=== PATIENT | female | born 1965 | race Caucasian/White ===

== ENCOUNTER 2023-12-29 23:20 | Inpatient (IN) | payer OTHER ==
--- OUTSIDE RECORDS SUMMARY | 2023-12-29 23:23 | XMS REPORT | Continuity of Care Document ---
Author Name Unknown Address [address] [facility] [address] [place] [address] [facility] thconnect Address [address] [facility] [address] [place] [address] Care Team Providers Care Retail Product Advisor Name Role Phone Kevin Aguiar MD Primary Care Physician DR NICHOL MELCHOR Attending Clinician Unavailable Kevin Aguiar MD Attending Clinician + [phone] KEVIN AGUIAR Attending Clinician DR NICHOL Mccray Admitting Clinician Unavailable Problems Condition Name Condition Details Condition Category Status Onset Date Resolution Date Last Treatment Date Treating Clinician Comments Source No known active problems No known active problems Disease [facility] Allergies, Adverse Reactions, Alerts Allergy Name Allergy Type Status Severity Reaction(s) Onset Date Inactive Date Treating Clinician Comments Source NO KNOWN ALLERGIE S Drug Class Active [facility] Social History Social Habit Start Date Stop Date Quantity Comments Source History SDOH Alcohol Frequency [facility] History SDOH Alcohol Std Drinks [facility] History SDOH Alcohol Binge [facility] Exposure to SARS-CoV-2 (event) Not sure [facility] Alcohol Comment 2021-07-24 00:00:00 2021-07-24 00:00:00 socially [facility] Tobacco use and exposure 2021-07-24 00:00:00 2021-07-24 00:00:00 Smokeless tobacco non-user [facility] Alcohol intake 2021-07-24 00:00:00 2021-07-24 00:00:00 Current drinker of alcohol (finding) [facility] Sex Ass[birth year] At 1965 00:00:00 1965 00:00:00 [facility] Smoking Status Start Date Stop Date Source Never smoked tobacco [facility] Medications Ordered Medication Name Filled Medication Name Start Date Stop Date Current Medication? Ordering Clinician Indication Dosage Frequency Signature (SIG) Comments Components Source dextroamphe tamine-amph etamine (ADDERALL) 30 mg tablet 05-06 00:00: 00 Yes [id number] 30mg Take 1 tablet by mouth in the morning and 1 tablet in the evening. [facility] dextroamphe tamine-amph etamine (ADDERALL) 30 mg tablet 04-02 00:00: 00 Yes [id number] 30mg Take 1 tablet by mouth 2 (two) times daily. [facility] dextroamphe tamine-amph etamine (ADDERALL) 30 mg tablet 04-02 00:00: 00 05-06 00:00 :00 No [id number] 30mg Take 1 tablet by mouth 2 (two) times daily. [facility] dextroamphe tamine-amph etamine (ADDERALL) 30 mg tablet 03-31 00:00: 00 Yes [id number] 30mg Take 1 tablet by mouth 2 (two) times daily. [facility] dextroamphe tamine-amph etamine (ADDERALL) 30 mg tablet 03-31 00:00: 00 04-02 00:00 :00 No [id number] 30mg Take 1 tablet by mouth 2 (two) times daily. [facility] dextroamphe tamine-amph etamine (ADDERALL) 30 mg tablet 02-18 00:00: 00 Yes [id number] 30mg Take 1 tablet by mouth 2 (two) times daily. [facility] dextroamphe tamine-amph etamine (ADDERALL) 30 mg tablet 02-18 00:00: 00 03-31 00:00 :00 No [id number] 30mg Take 1 tablet by mouth 2 (two) times daily. [facility] dextroamphe tamine-amph etamine (ADDERALL) 30 mg tablet 0 4-11 00:00: 00 Yes [id number] 30mg Take 1 tablet by mouth 2 (two) times daily. [facility] dextroamphe tamine-amph etamine (ADDERALL) 30 mg tablet 0 4- 00:00: 00 02-18 00:00 :00 No [id number] 30mg Take 1 tablet by mouth 2 (two) times daily. [facility] traZODone 50 mg tablet 0 3-03 00:00: 00 Yes [id number] 50mg Take 1 tablet by mouth at bedtime. [facility] traZODone 50 mg tablet 0 3-03 00:00: 00 Yes [id number] 50mg Take 1 tablet by mouth at bedtime. [facility] traZODone 50 mg tablet 0 3- 00:00: 00 Yes [id number] 50mg Take 1 tablet by mouth at bedtime. [facility] traZODone 50 mg tablet 0 3-03 00:00: 00 Yes [id number] 50mg Take 1 tablet by mouth at bedtime. [facility] traZODone 50 mg tablet 0 3-03 00:00: 00 Yes [id number] 50mg Take 1 tablet by mouth at bedtime. [facility] dextroamphe tamine-amph etamine (ADDERALL) 30 mg tablet 0 3-03 00:00: 00 01-19 00:00 :00 No [id number] 30mg Take 1 tablet by mouth 2 (two) times daily. [facility] dextroamphe tamine-amph etamine (ADDERALL) 30 mg tablet 2 00:00: 00 Yes [id number] 30mg Take 1 tablet by mouth 2 (two) times daily. [facility] dextroamphe tamine-amph etamine (ADDERALL) 30 mg tablet 2020-10 2- 00:00: 00 11-17 00:00 :00 No [id number] 30mg Take 1 tablet by mouth 2 (two) times daily. [facility] dextroamphe tamine-amph etamine (ADDERALL) 30 mg tablet 2020-10 00:00: 00 Yes [id number] 30mg Take 1 tablet by mouth 2 (two) times daily. [facility] dextroamphe tamine-amph etamine (ADDERALL) 30 mg tablet 2020-10 00:00: 00 Yes [id number] 30mg Take 1 tablet by mouth 2 (two) times daily. [facility] dextroamphe tamine-amph etamine (ADDERALL) 30 mg tablet 2020-10 00:00: 00 08-26 00:00 :00 No [id number] 30mg Take 1 tablet by mouth 2 (two) times daily. [facility] dextroamphe tamine-amph etamine (ADDERALL) 20 mg tablet 2020-10 00:00: 00 Yes [id number] 20mg Take 1 tablet by mouth daily. [facility] busPIRone 5 mg tablet 2020-10 00:00: 00 Yes [id number] 5mg Take 1 tablet by mouth 2 (two) times daily. [facility] dextroamphe tamine-amph etamine (ADDERALL) 20 mg tablet 2020-10 00:00: 00 Yes [id number] 20mg Take 1 tablet by mouth daily. [facility] busPIRone 5 mg tablet 2020-10 00:00: 00 Yes [id number] 5mg Take 1 tablet by mouth 2 (two) times daily. [facility] busPIRone 5 mg tablet 2020-10 014 00:00: 00 Yes [id number] 5mg Take 1 tablet by mouth 2 (two) times daily. [facility] busPIRone 5 mg tablet 2020-10 014 00:00: 00 Yes [id number] 5mg Take 1 tablet by mouth 2 (two) times daily. [facility] busPIRone 5 mg tablet 2021-1 0-14 00:00: 00 Yes [id number] 5mg Take 1 tablet by mouth 2 (two) times daily. [facility] dextroamphe tamine-amph etamine (ADDERALL) 20 mg tablet 2020-10 00:00: 00 08-22 00:00 :00 No [id number] 20mg Take 1 tablet by mouth daily. [facility] dextroamphe tamine-amph etamine (ADDERALL) 20 mg tablet 2020-10 00:00: 00 07-24 00:00 :00 No [id number] 20mg Take 1 tablet by mouth daily. [facility] dextroamphe tamine-amph etamine (ADDERALL) 20 mg tablet 2020-10 00:00: 00 07-24 00:00 :00 No [id number] 20mg Take 1 tablet by mouth daily. [facility] Vital Signs Vital Name Observation Time Observation Value Comments S ourmichael Systolic blood pressure 2021-07-24 14:25:00 137 mm[Hg] [facility] Diastolic blood pressure 2021-07-24 14:25:00 83 mm[Hg] [facility] Heart rate 2021-07-24 14:25:00 78 /min [facility] Body height 2021-07-24 14:25:00 177.8 cm [facility] Body weight 2021-07-24 14:25:00 111.585 kg [facility] BMI 2021-07-24 14:25:00 35.30 kg/m2 [facility] Encounters Start Date/Time End Date/Time Encounter Type Admission Type Attending Clinicians Care Facility Care Department Encounter ID Source 2017-10-08 07:00:00 Inpatient NICHOL CAMACOH [facility] [id number] [facility] 2022-05-06 00:00:00 2022-05-06 00:00:00 Refill Kevin Aguiar [facility] RAJAT?[facility] [id number] 350.1.13.10 [id number] [id number] [facility] 2022-04-02 00:00:00 2022-04-02 00:00:00 RefKevin Lewis [facility] RAJAT?[facility] 1..840.114 350.1.13.10 4.2.7.2.686 [id number] [facility] 2022-03-30 00:00:00 2022-03-30 00:00:00 Refill Kevin Aguiar [facility] RAJAT?[facility] 1..840.114 350.1.13.10 4.2.7.2.686 [id number] [facility] 2022-02-18 00:00:00 2022-02-18 00:00:00 RefKevin Lewis [facility] RAJAT?[facility] 1..840.114 350.1.13.10 4.2.7.2.686 [id number] [facility] 2022-01-19 00:00:00 2022-01-19 00:00:00 RefKevin Lewis [facility] RAJAT?[facility] 1..840.114 350.1.13.10 4.2.7.2.686 [id number] [facility] 2021-12-11 10:00:00 2021-12-11 10:00:00 Outpatient KEVIN WHEELER [facility] [id number] [facility] 2021-11-24 09:00:00 2021-11-24 09:00:00 Outpatient KEVIN WHEELER [facility] [id number] [facility] 2021-11-17 00:00:00 2021-11-17 00:00:00 RefKevin Lewis [facility] 1..840.114 350.1.13.10 4.2.7.2.686 [id number] [facility] 2021-08-26 00:00:00 2021-08-26 00:00:00 Telephone Kevin Aguiar [facility] RAJAT?[facility] [id number] 350.1.13.10 [id number] [id number] [facility] 2021-08-21 00:00:00 2021-08-21 00:00:00 [facility] [id number] 350.1.13.10 [id number] [id number] [facility] 2021-07-24 09:11:36 2021-07-24 09:41:36 Office [facility] [id number] [id number] [id number] [id number] [facility] 2021-07-24 09:30:00 2021-07-24 09:30:00 Outpatient R KEVIN AGUIAR [facility] [id number] [facility]
[2023-12-30] MEDS ORDERED: ASPIRIN 81 MG CHEWABLE TABLET ONE (00:23)
[2023-12-30] MEDS ORDERED: NA CHLORIDE 0.9% 1,000 ML ONE (00:24)
[2023-12-30 01:11] LABS: Absolute Eosinophils 0.2 K/uL (0-0.5); Absolute Lymphocytes (CBC) 1.2 K/uL (0.7-4.9); Absolute Monocytes 0.5 K/uL (0.1-1.3); Absolute Neutrophil 5.6 K/uL (1.8-8.0); Basophils % 0.2 % (0-1.3); Hematocrit 34.9 % (36.0-45.0); Hemoglobin 11.7 g/dL (12.0-15.0); Lymphocytes % 15.9 % (15.3-44.8); MCHC 33.6 g/dL (32.0-36.0); MCV 83.2 fL (80-100); MPV 8.4 fL (7.6-11.3); Monocytes % 6.8 % (3.3-12.3); Neutrophils % 75.1 % (41.7-73.7); Nucleated Red Blood Cells % 0.1 % (0-0); Platelets 226 thou/uL (152-406); Red Cell Distribution Width 14.8 % (12.1-15.2)
[2023-12-30 01:15] LABS: PT Prothrombin Time 12.2 SECONDS (9.5-12.5); Protime INR 1.11
[2023-12-30 01:29] LABS: SARS-CoV-2 Antigen CONTROL BLUE LINE VIS/BG OK; SARS-CoV-2 Antigen Rapid Res Negative (Negative)
[2023-12-30 01:36] LABS: Albumin 3.6 g/dL (3.4-5.0); Albumin/Globulin Ratio 0.9 (1.1-1.8); Anion Gap 9.8 mEq/L (5.0-15.0); Bilirubin Direct 0.1 mg/dL (0-0.2); Bilirubin Indirect, Calculated 0.3 mg/dL (0.2-0.8); Bilirubin Total 0.4 mg/dL (0.2-1.0); C-Reactive Protein 43.3 mg/L (<3.00); Globulin 4.2 g/dL (2.3-3.5); Magnesium 2.4 mg/dL (1.6-2.4); Potassium 3.8 mEq/L (3.5-5.1); Protein, Total 7.8 g/dL (6.4-8.2); Thyroid Stimulating Hormone 1.67 uIU/mL (0.358-3.740)
[2023-12-30 01:37] LABS: Troponin High Sensitivity 616.4 pg/mL (<58.9)
[2023-12-30] MEDS ORDERED: ONDANSETRON 4 MG/2 ML VIAL IV PRN (03:19)
[2023-12-30] MEDS ORDERED: IPRATROPIUM BROM 0.5MG/2.5ML NEB PRN (03:19)
[2023-12-30] MEDS ORDERED: ACETAMINOPHEN 500 MG TAB PO PRN (03:19)
[2023-12-30] MEDS ORDERED: ALBUTEROL 2.5 MG/3 ML NEB SOL NEB PRN (03:19)
--- NOTE | 2023-12-30 03:19 | EDPHYS ---
Physician Documentation [facility] Name: Neelam Abdullahi Age: 58 yrs Sex: Female : 1965 Arrival Date: 12/29/2023 Time: 23:20 Bed 18 Private MD: None, None ED Physician Jacky Chi HPI: 12/28 23:47 This 58 yrs old Female presents to ER via Wheelchair with complaints of sp4 Breathing Difficulty, Neck pain. 12/29 00:03 58-year-old female presents with acute onset of shortness of breath and chest pain on sp4 physical exertion starting at noon today. Patient also reports some pain in her upper neck. Historical: - Allergies: 12/28 23:37 No Known Allergies; kd3 - Immunization history:: Adult Immunizations up to date. - Social history:: Smoking status: Patient denies any tobacco usage or history of. - Family history:: not pertinent. ROS: 12/29 00:03 Constitutional: Negative for fever, chills, and weight loss, positive chest pain sp4 positive shortness of breath with physical exertion All other systems are negative, Exam: 00:03 Constitutional: This is a well developed, well nourished patient who is awake, alert, sp4 and in no acute distress. Head/Face: Normocephalic, atraumatic. Eyes: Pupils equal round and reactive to light, extra-ocular motions intact. Lids and lashes normal. Conjunctiva and sclera are not injected. Cornea within normal limits. Periorbital areas with no swelling, redness, or edema. ENT: Nares patent. No nasal discharge, no septal abnormalities noted. Tympanic membranes are normal and external auditory canals are clear. Oropharynx with no redness, swelling, or masses, exudates, or evidence of obstruction, uvula midline. Mucous membranes moist. Neck: Trachea midline, no thyromegaly or masses palpated, and no cervical lymphadenopathy. Supple, full range of motion without nuchal rigidity, or vertebral point tenderness. Chest/axilla: Normal chest wall appearance and motion. Nontender with no deformity. No lesions are appreciated. Cardiovascular: Regular rate and rhythm with a normal S1 and S2. No gallops, murmurs, or rubs. Normal PMI, no JVD. No pulse deficits. Respiratory: Lungs have equal breath sounds bilaterally, clear to auscultation and percussion. No rales, rhonchi or wheezes noted. No increased work of breathing, no retractions or nasal flaring. Abdomen/GI: Soft, with normal bowel sounds. No distension or tympany. No guarding or rebound. No evidence of tenderness throughout. Back: No spinal tenderness. No costovertebral tenderness. Skin: Warm, dry with normal turgor. Normal color with no rashes, no lesions, and no evidence of cellulitis. MS/ Extremity: Pulses equal, no cyanosis. Neurovascular intact. Full, normal range of motion. Neuro: Awake and alert, GCS 15, oriented to person, place, time, and situation. Cranial nerves II-XII grossly intact. Motor strength 5/5 in all extremities. Sensory grossly intact. Psych: Awake, alert, with orientation to person, place and time. Behavior, mood, and affect are within normal limits Vital Signs: 12/28 23:35 BP 147 / 89; Pulse 89; Resp 20; Temp 98.2(O); Pulse Ox 98% on R/A; Weight 104.33 kg; kd3 Height 5 ft. 10 in. ; 12/29 00:00 BP 149 / 104; Pulse 94; Resp 19 S; Pulse Ox 96% on R/A; jw7 01:00 BP 147 / 98; Pulse 87; Resp 18 S; Pulse Ox 97% on R/A; jw7 03:02 BP 135 / 89; Pulse 86; Resp 18; Pulse Ox 95% ; vc1 03:23 Weight 109.27 kg (M); jw7 04:00 BP 136 / 87; Pulse 87; Resp 17; Pulse Ox 98% on 2 lpm NC; vc1 12/28 23:35 Body Mass Index 33.00 (109.27 kg, 177.8 cm) kd3 NIH Stroke Scale Scores: 00:03 NIHSS Score: 0 sp4 Sanders Coma Score: 00:03 Eye Response: spontaneous(4). Motor Response: obeys commands(6). Verbal Response: sp4 oriented(5). Total: 15. MDM: 12/28 23:53 Patient medically screened. sp4 12/29 00:07 Data reviewed: vital signs, nurses notes, old medical records, lab test result(s), EKG, sp4 radiologic studies, CT scan, plain films. 02:58 Differential diagnosis: Anxiety Reaction asthma, Bronchitis CHF exacerbation, Chronic sp4 Obstructive Pulmonary Disease Myocardial Infarction pneumonia. ED course: EXAM: Chest Single View CLINICAL INDICATION: 58-year-old female with chest pain. TECHNIQUE: Single view, AP portable chest was obtained. COMPARISON: None. FINDINGS: Unremarkable cardiac and mediastinal silhouette. Heart size is normal. Low lung volumes without focal opacity, pneumothorax or pleural effusions. The visualized bones are within normal limits. IMPRESSION: No acute cardiopulmonary abnormalities. 03:06 ED course: EXAM DESCRIPTION: Chest For Pe Angio CLINICAL HISTORY: CHEST PAIN sp4 COMPARISON: None Available. TECHNIQUE: CTA of the chest obtained following the uncomplicated intravenous administration of iodinated contrast. 3-D/MIP reformatted images of the chest available for evaluation. This exam was performed according to our departmental dose-optimization program, which includes automated exposure control, adjustment of the mA and/or kV according to patient size and/or use of iterative reconstruction technique. FINDINGS: Chest: Pulmonary arteries: Contrast bolus is adequate.Multiple filling defects within the right, left, bilateral lobar, and bilateral segmental pulmonary arterial branches compatible with acute pulmonary emboli. Thyroid:No abnormalities of the visualized thyroid. Great Vessels:Great vessels have normal anatomic configuration. Thoracic Aorta:No abnormalities of the thoracic aorta identified. Heart:Heart is not enlarged. RV:LV ratio of 1.5. Flattening of the intraventricular septum. Lymph Nodes:No enlarged mediastinal lymph nodes identified. Esophagus:No abnormalities of the esophagus identified. Other:No additional findings. Lungs:Minimal dependent atelectasis. No confluent airspace consolidation. Pleura:No pleural effusion or pneumothorax. Trachea/Airways:No abnormalities of the visualized trachea or airways. Bones:Mild endplate spondylosis. Upper Abdomen:Limited images of the upper abdomen demonstrate no definite abnormalities of visualized portions of the liver, gallbladder, pancreas, spleen, or adrenal glands. Urgent finding reported to Dr. Chi at 12/30/2023 2:59 AM CDT IMPRESSION: Acute pulmonary emboli involving the right, left, bilateral lobar, and bilateral segmental pulmonary arterial branches. Large clot burden. Findings suggestive of right heart strain. Electronically signed by: Daniel Edge DO 12/30/2023 03:00 AM. 03:15 ED course: Patient warrants admission for management of pulmonary emboli. Will order sp4 bilateral lower extremity ultrasound. Will initiate IV heparin. . 05:26 ED course: PROCEDURE: US Duplex Bilateral Lower Extremities Veins CLINICAL INDICATION: sp4 The patient is 58 years old and is Female; rule out DVT Bed Name: 18 TECHNIQUE: Real-time duplex ultrasound scan of the bilateral lower extremity veins integrating B-mode two-dimensional vascular structure, Doppler spectral analysis, color flow Doppler imaging and compression. COMPARISON: No relevant prior studies available. FINDINGS: RIGHT DEEP VEINS: Echogenic debris demonstrated within the right popliteal vein with noncompression and no flow demonstrated within, consistent with occlusive thrombus. The remaining veins of the right lower extremity demonstrate normal color flow, are normally compressible, with normal phasic flow and/or augmentation response. No additional DVT identified and the right common femoral, femoral, or proximal deep femoral veins. RIGHT SUPERFICIAL VEINS: Unremarkable No thrombus in the visualized right great saphenous vein. LEFT DEEP VEINS: Unremarkable No DVT in the left common femoral, femoral, proximal deep femoral or popliteal veins. The veins demonstrate normal color flow, are normally compressible, with normal phasic flow and/or augmentation response. LEFT SUPERFICIAL VEINS: Unremarkable No thrombus in the visualized left great saphenous vein. SOFT TISSUES: No acute findings. IMPRESSION: Occlusive DVT demonstrated within the right popliteal vein. . 12/29 00:01 Order name: Basic Metabolic Panel; Complete Time: 02:57 sp4 12/29 00:01 Order name: CBC with Diff; Complete Time: 02:57 4 12/29 00:01 Order name: LFT's; Complete Time: 02:57 sp4 12/29 00:01 Order name: Magnesium; Complete Time: 02:57 sp4 12/29 00:01 Order name: NT PRO-BNP; Complete Time: 02:57 4 12/29 00:01 Order name: PT-INR; Complete Time: 02:57 sp4 12/29 00:01 Order name: Troponin HS; Complete Time: 02:57 sp4 12/29 00:02 Order name: TSH; Complete Time: 02:57 sp4 12/29 00:02 Order name: T4 Free; Complete Time: 02:57 sp4 12/29 00:02 Order name: SARS RAPID; Complete Time: 02:57 sp4 12/29 00:02 Order name: CRP; Complete Time: 02:57 sp4 12/29 00:02 Order name: Influenza Screen (a \T\ B); Complete Time: 02:57 4 12/29 00:03 Order name: Urinalysis W/Microscopic [facility] 12/29 00:03 Order name: Urine Drug Screen [facility] 12/29 03:25 Order name: Basic Metabolic Panel EDMS 12/29 03:25 Order name: Basic Metabolic Panel EDMS 12/29 03:25 Order name: Basic Metabolic Panel EDMS 12/29 03:25 Order name: Basic Metabolic Panel EDMS 12/29 03:25 Order name: CBC with Automated Diff EDMS 12/29 03:25 Order name: CBC with Automated Diff EDMS 12/29 03:25 Order name: CBC with Automated Diff EDMS 12/29 03:25 Order name: CBC with Automated Diff EDMS 12/29 03:25 Order name: Troponin High Sensitivity EDMS 12/29 03:25 Order name: Troponin High Sensitivity EDMS 12/29 03:25 Order name: Troponin High Sensitivity EDMS 12/29 03:25 Order name: Troponin High Sensitivity MS 12/29 00:01 Order name: XRAY Chest (1 view) [facility] 12/29 00:02 Order name: CT Chest For PE Angio 4 12/29 03:19 Order name: Extrem Venous W Compression [place] [facility] 12/29 00:01 Order name: EKG; Complete Time: 00:02 [facility] 12/29 03:25 Order name: CONS Physician Consult [facility] 12/29 00:01 Order name: Cardiac monitoring; Complete Time: 00:54 4 12/29 00:01 Order name: EKG - Nurse/Tech; Complete Time: 00:54 [facility] 12/29 00:01 Order name: IV Saline Lock; Complete Time: 00:31 4 12/29 00:01 Order name: Labs collected and sent; Complete Time: 00:31 4 12/29 00:01 Order name: O2 Per Protocol; Complete Time: 00:31 [facility] 12/29 00:01 Order name: O2 Sat Monitoring; Complete Time: 00:31 [facility] Administered Medications: 00:31 Drug: Aspirin PO Chewable Tablet 324 mg PO once; 81 mg tablets x 4 Route: PO; jw7 04:58 Follow up: Response: No adverse reaction vc1 00:31 Drug: NS 0.9% IV 1000 ml IV at 125 ml/hr continuous Route: IV; Rate: 125 ml/hr; Site: jw7 right antecubital; 04:56 Follow up: IV Status: Order to discontinue infusion vc1 04:02 Drug: Heparin (DVT/PE Drip) 18 units/kg/[place] - ([place] [address] units, D5W IV 500 ml) IV jw7 at 1850 units/hr Per protocol; Max initial rate 1800 units/hr {Co-Signature: vc1 (Felicia Garner RN).} Route: IV; Rate: 1800 units/hr; Site: right antecubital; 04:56 Follow up: IV Status: Infusion continued upon admission vc1 04:08 CANCELLED (Other Intervention Used): [id number] units IV at bolus once vc1 04:09 Drug: HEParin IV 8000 units IV at bolus once {Co-Signature: vc1 (Felicia Garner RN).} jw7 Route: IV; Rate: bolus; Site: right antecubital; 04:12 Follow up: IV Status: Completed infusion; IV Intake: 1.6ml vc1 Disposition Summary: 12/30/23 03:18 Hospitalization Ordered Notes: Hospitalization Status: Inpatient Admission sp4 Provider: Sina Wong sp4 [facility] Condition: Stable sp4 Problem: new sp4 Symptoms: have improved sp4 Bed/Room Type: Standard sp4 Room Assignment: 406(12/30/23 03:53) jb4 Diagnosis - Pulmonary embolism without acute cor pulmonale sp4 - Bilateral pulmonary emboli, elevated troponin, right heart strain sp4 Forms: - Medication Reconciliation Form sp4 - SBAR form sp4 - Leadership Thank You Letter sp4 NIH Stroke Scale - NIH Stroke Score Date: 12/30/2023 Time: 00:03 Total Score = 0 10. Dysarthria (speech clarity - read or repeat words) - 0(Normal) 11. Extinction and Inattention (visual/tactile/auditory/spatial/personal) - 0(No abnormality) 1a. Level of Consciousness (LOC) - 0(Alert) 1b. Level of Consciousness (LOC) (Month \T\ Age) - 0(Both) 1c. LOC Commands (Open \T\ Closes Eyes/Client Services Specialist) - 0(Both) 2. Best Gaze (Lateral Gaze Paresis) - 0(Normal) 3. Visual Field Loss - 0(No visual loss) 4. Facial Palsy - 0(Normal) 5a. Left Arm: Motor (10-second hold) - 0(No drift) 5b. Right Arm: Motor (10-second hold) - 0(No drift) 6a. Left Leg: Motor (5-second hold - always test supine) - 0(No drift) 6b. Right Leg: Motor (5-second hold - always test supine) - 0(No drift) 7. Limb Ataxia (finger/nose \T\ heel/nieves - test with eyes open) - 0(Absent) 8. Sensory Loss (pinprick arms/legs/face) - 0(Normal) 9. Best Language: Aphasia (description/naming/reading) - 0(No aphasia) Initials: sp4 Signatures: Dispatcher [employer] EDMS Masoud Mason RN RN jb4 Mya Brenner RN RN kd3 Felicia Garner RN RN vc1 Regina Esquivel RN RN jw7 Potepalov, Sergey, MD MD sp4 Felicia Garner RN vc1 Corrections: (The following items were deleted from the chart) 03:53 03:18 sp4 jb4 04:08 03:03 HEParin IV 5000 units IV at bolus once ordered. sp4 vc1 04:08 04:01 HEParin IV 5000 units IV at bolus once given. jw7 vc1 04:08 04:03 HEParin IV 5000 units IV at bolus once ordered. jw7 vc1
--- NOTE | 2023-12-30 03:19 | P.HP ---
Certification for Inpatient Patient admitted to: Inpatient With expected LOS: >2 Midnights Practitioner: I am a practitioner with admitting privileges, knowledge of patient current condition, hospital course, and medical plan of care. Services: Services provided to patient in accordance with Admission requirements found in Title 42 Section 412.3 of the Code of Federal Regulations Patient History Date of Service: 12/30/23 Reason for admission: Bilateral pulmonary embolism, DVT. History of Present Illness: 58-year-old female patient with no significant medical history was evaluated for episode of worsening shortness of breath. She reported episodes of breath earlier earlier today with associated mild pleuritic component to it. She got more tired and lethargy so she had to come to the ED. In the ED she was worked up and found to have significant abnormalities which include imaging study concerning for bilateral pulm embolism and a right lower extremity DVT. She denies overt episode of chest pain, nausea, vomiting. No prior history of DVTs. She was started on heparin drip and was admitted for inpatient care. Workup also revealed significant elevated troponin of 600. Allergies No Known Allergies Allergy (Unverified 12/30/23 05:31) Review of Systems General: Weakness Eyes: Unremarkable ENT: Unremarkable Respiratory: Shortness of Breath, Pleuritic Pain Cardiovascular: Unremarkable Gastrointestinal: Unremarkable Genitourinary: Unremarkable Musculoskeletal: Unremarkable Neurological: Unremarkable Lymphatics: Unremarkable Physical Examination - Physical Exam General: Alert, Oriented x3 HEENT: Atraumatic Neck: Supple Respiratory: Normal air movement Cardiovascular: Normal pulses, Regular rate/rhythm Gastrointestinal: Soft and benign Musculoskeletal: No swelling Neurological: Normal speech, Normal strength at 5/5 x4 extr - Studies Laboratory Data (last 24 hrs) 12/30/23 12/30/23 12/30/23 00:25 00:25 00:25 WBC 7.50 Hgb 11.7 L Hct 34.9 L Plt Count 226 PT 12.2 INR 1.11 Sodium 139 Potassium 3.8 BUN 9 Creatinine 0.91 Glucose 113 H Magnesium 2.4 Total Bilirubin 0.4 AST 22 ALT 14 Alkaline Phosphatase 96 Microbiology Data (last 24 hrs): 12/30/23 00:31 Nasopharnyx Influenza Type A Antigen Screen - Final 12/30/23 00:31 Nasopharnyx Influenza Type B Antigen Screen - Final Assessment and Plan - Plan Bilateral pulmonary embolism: Patient has significant clot burden with bilateral pulmonary embolism on CT pulmonary done in the ED. Heparin drip started for management. Have pulmonary physician consulted for management recommendation. Right lower extremity DVT: Found on imaging study. Heparin drip started for management. Follow symptomatology closely. Will transition to oral anticoagulation therapy as per pulmonary physician recommendation. NSTEMI: Patient is elevated troponin of 600. Will have echocardiogram done and consult cardiology for management recommendation. Will continue heparin drip for management of PE episode. Prophylaxis: Heparin drip to be continued for DVT prophylaxis, PE treatment and DVT treatment. CODE STATUS: Full code Disposition: We will treat pulm embolism and DVT, and she will be discharged once cleared by pulmonary service. - Advance Directives Does patient have a Living Will: No Does patient have a Durable POA for Healthcare: No
--- NOTE | 2023-12-30 03:19 | ER ---
Nurse's Notes [facility] Name: Neelam Abdullahi Age: 58 yrs Sex: Female : 1965 Arrival Date: 12/29/2023 Time: 23:20 Bed 18 Private MD: None, None Diagnosis: Pulmonary embolism without acute cor pulmonale;Bilateral pulmonary emboli, elevated troponin, right heart strain Presentation: 12/28 23:35 Chief complaint: Patient states: I have had a pain in the back of my neck and behind my kd3 right ear for about 2 weeks now. Today i started feeling SOB when i walked around and dizzy and nauseous. I get better when i sit still. Also my right hip hurts. Coronavirus screen: Vaccine status: Patient reports being unvaccinated. Ebola Screen: No symptoms or risks identified at this time. Initial Sepsis Screen: Does the patient meet any 2 criteria? No. Patient's initial sepsis screen is negative. Does the patient have a suspected source of infection? No. Patient's initial sepsis screen is negative. Risk Assessment: Do you want to hurt yourself or someone else? Patient reports no desire to harm self or others. Onset of symptoms was December 29, 2023. 23:35 Method Of Arrival: Wheelchair kd3 23:35 Acuity: SHERRI 3 kd3 Triage Assessment: 23:37 General: Appears uncomfortable, Behavior is calm, cooperative. Pain: Complains of pain kd3 in neck, hip. Respiratory: Reports shortness of breath on exertion Onset: The symptoms/episode began/occurred today, the patient has moderate shortness of breath. Historical: - Allergies: 23:37 No Known Allergies; kd3 - Immunization history:: Adult Immunizations up to date. - Social history:: Smoking status: Patient denies any tobacco usage or history of. - Family history:: not pertinent. Screenin/21 00:00 [facility] ED Fall Risk Assessment (Adult) History of falling in the last 3 months, jw7 including since admission No falls in past 3 months (0 pts) Confusion or Disorientation No (0 pts) Intoxicated or Sedated No (0 pts) Impaired Gait No (0 pts) Mobility Assist Device Used No (0 pt) Altered Elimination No (0 pt) Score/Fall Risk Level 0 - 2 = Low Risk Oriented to surroundings, Maintained a safe environment, Educated pt \T\ family on fall prevention, incl call for assistance when getting out of bed. Abuse screen: Denies threats or abuse. Denies injuries from another. Nutritional screening: No deficits noted. Tuberculosis screening: No symptoms or risk factors identified. Assessment: 12/28 23:45 General: Appears in no apparent distress. uncomfortable, Behavior is calm, cooperative. jw7 Pain: Complains of pain in back of neck, and hip Pain does not radiate. Pain currently is 8 out of 10 on a pain scale. Quality of pain is described as sharp, Pain began 2-3 days ago. Is intermittent. Neuro: Level of Consciousness is awake, alert, obeys commands, Oriented to person, place, time, situation. Cardiovascular: Heart tones S1 S2 present Capillary refill < 3 seconds Clubbing of nail beds is absent JVD is absent Patient's skin is warm and dry. Rhythm is sinus rhythm. Respiratory: Airway is patent Trachea midline Respiratory effort is even, unlabored, Respiratory pattern is regular, symmetrical, tachypnea. GI: Abdomen is flat, non-distended, Bowel sounds present X 4 quads. Abd is soft and non tender X 4 quads. : No deficits noted. No signs and/or symptoms were reported regarding the genitourinary system. EENT: No deficits noted. No signs and/or symptoms were reported regarding the EENT system. Derm: Skin is intact, is healthy with good turgor, Skin is dry, Skin is normal, Skin temperature is warm. Musculoskeletal: Circulation, motion, and sensation intact. Range of motion: intact in all extremities. 12/29 01:00 Reassessment: Patient appears in no apparent distress at this time. Patient and/or jw7 family updated on plan of care and expected duration. Pain level reassessed. Patient is alert, oriented x 3, equal unlabored respirations, skin warm/dry/pink. Patient states symptoms have improved. 03:02 Reassessment: Patient appears in no apparent distress at this time. No changes from vc1 previously documented assessment. Patient and/or family updated on plan of care and expected duration. Pain level reassessed. Patient is alert, oriented x 3, equal unlabored respirations, skin warm/dry/pink. 04:00 Reassessment: Patient appears in no apparent distress at this time. No changes from vc1 previously documented assessment. Patient and/or family updated on plan of care and expected duration. Pain level reassessed. Patient is alert, oriented x 3, equal unlabored respirations, skin warm/dry/pink. Vital Signs: 12/28 23:35 BP 147 / 89; Pulse 89; Resp 20; Temp 98.2(O); Pulse Ox 98% on R/A; Weight 104.33 kg; kd3 Height 5 ft. 10 in. ; 12/29 00:00 BP 149 / 104; Pulse 94; Resp 19 S; Pulse Ox 96% on R/A; jw7 01:00 BP 147 / 98; Pulse 87; Resp 18 S; Pulse Ox 97% on R/A; jw7 03:02 BP 135 / 89; Pulse 86; Resp 18; Pulse Ox 95% ; vc1 03:23 Weight 109.27 kg (M); jw7 04:00 BP 136 / 87; Pulse 87; Resp 17; Pulse Ox 98% on 2 lpm NC; vc1 12/28 23:35 Body Mass Index 33.00 (109.27 kg, 177.8 cm) kd3 [place] Coma Score: 00:03 Eye Response: spontaneous(4). Motor Response: obeys commands(6). Verbal Response: sp4 oriented(5). Total: 15. NIH Stroke Scale Scores: 00:03 NIHSS Score: 0 sp4 ED Course: 12/28 23:22 Patient arrived in ED. mr 23:23 None, None is Private Physician. mr 23:37 Triage completed. kd3 23:37 Arm band placed on. kd3 23:47 Jacky Chi MD is Attending Physician. sp4 12/29 00:00 Patient has correct armband on for positive identification. Bed in low position. Call jw7 light in reach. Side rails up X 1. Provided Education on: Use of Call Light. 00:14 Regina Esquivel RN is Primary Nurse. jw7 00:19 XRAY Chest (1 view) In Process Unspecified. EDMS 00:30 Warm blanket given. vk 00:30 Inserted saline lock: 22 gauge in right antecubital area, using aseptic technique. vk 00:30 Initial lab(s) drawn, by me, sent to lab. vk 00:31 COVID swab sent to lab. Flu and/or RSV swab sent to lab. vk 00:32 Safety checks:. Head of bed elevated. vk 00:53 Warm blanket given. vk 00:53 EKG done, by meteorological technician. vk 00:54 Client placed on continuous cardiac and pulse oximetry monitoring. NIBP monitoring vk applied. alarm security or surveillance monitor on. 02:31 CT Chest For PE Angio In Process Unspecified. EDMS 03:17 Sina Wong MD is Hospitalizing Provider. sp4 04:35 No provider procedures requiring assistance completed. Patient admitted, IV remains in vc1 place. Administered Medications: 00:31 Drug: Aspirin PO Chewable Tablet 324 mg PO once; 81 mg tablets x 4 Route: PO; jw7 04:58 Follow up: Response: No adverse reaction vc1 00:31 Drug: NS 0.9% IV 1000 ml IV at 125 ml/hr continuous Route: IV; Rate: 125 ml/hr; Site: [facility] right antecubital; 04:56 Follow up: IV Status: Order to discontinue infusion vc1 04:02 Drug: Heparin (DVT/PE Drip) 18 units/kg/[place] - ([place] [address] units, D5W IV 500 ml) IV jw7 at 1850 units/hr Per protocol; Max initial rate 1800 units/hr {Co-Signature: vc1 (Felicia Garner RN).} Route: IV; Rate: 1800 units/hr; Site: right antecubital; 04:56 Follow up: IV Status: Infusion continued upon admission vc1 04:08 CANCELLED (Other Intervention Used): [id number] units IV at bolus once vc1 04:09 Drug: HEParin IV 8000 units IV at bolus once {Co-Signature: vc1 (Felicia Garner RN).} jw7 Route: IV; Rate: bolus; Site: right antecubital; 04:12 Follow up: IV Status: Completed infusion; IV Intake: 1.6ml vc1 Medication: 04:35 VIS not applicable for this client. vc1 Intake: 04:12 IV: 2ml; Total: 2ml. vc1 Outcome: 03:18 Decision to Hospitalize by Provider. sp4 04:35 Condition: stable vc1 04:35 Instructed on the need for admit, 04:54 Admitted to Tele accompanied by tech, via stretcher, room 406, with oxygen, with chart, vc1 Report called to report faxed 04:55 Patient left the ED. vc1 NIH Stroke Scale - NIH Stroke Score Date: 12/30/2023 Time: 00:03 Total Score = 0 10. Dysarthria (speech clarity - read or repeat words) - 0(Normal) 11. Extinction and Inattention (visual/tactile/auditory/spatial/personal) - 0(No abnormality) 1a. Level of Consciousness (LOC) - 0(Alert) 1b. Level of Consciousness (LOC) (Month \T\ Age) - 0(Both) 1c. LOC Commands (Open \T\ Closes Eyes/Curb Setter Helper) - 0(Both) 2. Best Gaze (Lateral Gaze Paresis) - 0(Normal) 3. Visual Field Loss - 0(No visual loss) 4. Facial Palsy - 0(Normal) 5a. Left Arm: Motor (10-second hold) - 0(No drift) 5b. Right Arm: Motor (10-second hold) - 0(No drift) 6a. Left Leg: Motor (5-second hold - always test supine) - 0(No drift) 6b. Right Leg: Motor (5-second hold - always test supine) - 0(No drift) 7. Limb Ataxia (finger/nose \T\ heel/nieves - test with eyes open) - 0(Absent) 8. Sensory Loss (pinprick arms/legs/face) - 0(Normal) 9. Best Language: Aphasia (description/naming/reading) - 0(No aphasia) Initials: sp4 Signatures: Dispatcher [employer] EDNJ Caity Egan, Reg Reg mr BrennerMya RN RN kd3 Felicia Garner RN RN vc1 Regina Esquivel RN RN jw7 Jacky Chi MD MD sp4 Marychuy Nicholas Vanessa RN vc1 Corrections: (The following items were deleted from the chart) 03:24 03:23 109.27 kg; jw7 jw7 04:02 04:02 Heparin (DVT/PE Drip) - ([place] [address] units, D5W IV 500 ml) IV at jw7 1850 units/hr in right antecubital jw7 04:03 04:01 HEParin IV 5000 units IV at bolus in right antecubital jw7 jw7 04:35 03:02 Pulse 86bpm; Resp 18bpm; Pulse Ox 95%; vc1 vc1
[2023-12-30] MEDS ORDERED: HEPARIN 5000 UNIT/ML 1 ML VIAL ONE ×2 (03:37→03:55)
[2023-12-30] MEDS ORDERED: HEPARIN/D5W 25,000 UNIT/500 ML BAG IV ONE (03:37)
[2023-12-30] MEDS ORDERED: HEPARIN/D5W 25,000 UNIT/500 ML BAG IV SCH (06:00)
[2023-12-30] MEDS: Enoxaparin 120 MG/0.8 ML SYR SQ SCH (09:34)
--- NOTE | 2023-12-30 10:30 | P.PN ---
Subjective Date of Service: 12/30/23 Chief Complaint: Bilateral pulmonary embolism, DVT. Pt is resting comfortably in bed. She is using 2L BNC. Continue lovenox 110mg subq BID for bilateral PE and RLE DVT. Waiting for Echo. No other complaints Review of Systems General: Unremarkable Eyes: Unremarkable ENT: Unremarkable Respiratory: SOB with Excertion Cardiovascular: Unremarkable Gastrointestinal: Unremarkable Genitourinary: Unremarkable Musculoskeletal: Unremarkable Integumentary: Unremarkable Neurological: Unremarkable Lymphatics: Unremarkable Physical Examination - Vital Signs Temperature: 97 F Blood Pressure: 138/83 Pulse: 85 Respirations: 18 Pulse Ox (%): 96 - Physical Exam General: Alert, In no apparent distress, Oriented x3, Obese (morbid obesity) HEENT: Atraumatic, Normocephalic, PERRLA Neck: Supple, 2+ carotid pulse no bruit Respiratory: Clear to auscultation bilaterally, Normal air movement Cardiovascular: No edema, Normal pulses, Regular rate/rhythm, Normal S1 S2 Capillary refill: <2 Seconds Gastrointestinal: Normal bowel sounds, Soft and benign, Non-distended Musculoskeletal: No clubbing, No swelling Integumentary: No rashes, No breakdown Neurological: Normal gait, Normal speech, Normal strength at 5/5 x4 extr Lymphatics: No axilla or inguinal lymphadenopathy - Studies Laboratory Data (last 24 hrs) 12/30/23 12/30/23 12/30/23 00:25 00:25 00:25 WBC 7.50 Hgb 11.7 L Hct 34.9 L Plt Count 226 PT 12.2 INR 1.11 Sodium 139 Potassium 3.8 BUN 9 Creatinine 0.91 Glucose 113 H Magnesium 2.4 Total Bilirubin 0.4 AST 22 ALT 14 Alkaline Phosphatase 96 Microbiology Data (last 24 hrs): 12/30/23 00:31 Nasopharnyx Influenza Type A Antigen Screen - Final 12/30/23 00:31 Nasopharnyx Influenza Type B Antigen Screen - Final Assessment And Plan - Plan Bilateral pulmonary embolism: Per CT chest. Will continue lovenox 110mg subq BID. Pt will be discharged with Eliquis. Will f/u Echo to r/o RV strain. Pulm is following. Right lower extremity DVT: Will continue therapeutic lovenox. Pulm is following. Pt need to take AC for at least 3 - 6 months. NSTEMI: Troponin is elevated, likely due to PE and DVT. Trend troponin 616 -> 422 -> 318. Consulted cardiology. Will continue therapeutic lovenox. Hypokalemia: K is 3.1. Will replete and monitor. Anemia: Hgb is 11,7. Will monitor H/H DVT prophylaxis: lovenox Code: Full code Disposition: Pending hospital course.
--- NOTE | 2023-12-30 10:44 | RAD REPORT ---
EXAM DESCRIPTION: US - Extrem Venous W Compress Davion - 12/30/2023 3:53 am CLINICAL HISTORY: The patient is 58 years old and is Female; rule out DVT Bed Name: 18 TECHNIQUE: Real-time duplex ultrasound scan of the bilateral lower extremity veins integrating B-mod e two-dimensional vascular structure, Doppler spectral analysis, color flow Doppler imaging and compr ession. COMPARISON: No relevant prior studies available. FINDINGS: RIGHT DEEP VEINS: Echogenic debris demonstrated within the right popliteal vein with nonco mpression and no flow demonstrated within, consistent with occlusive thrombus. The remaining veins of the right lower extremity demonstrate normal color flow, are normally compressible, with normal ph asic flow and/or augmentation response. No additional DVT identified and the right common femoral, fe moral, or proximal deep femoral veins. RIGHT SUPERFICIAL VEINS: Unremarkable No thrombus in the visualized right great saphenous vein. LEFT DEEP VEINS: Unremarkable No DVT in the left common femoral, femoral, proximal deep femoral o r popliteal veins. The veins demonstrate normal color flow, are normally compressible, with normal phasic flow and/or augmentation response. LEFT SUPERFICIAL VEINS: Unremarkable No thrombus in the visualized left great saphenous vein. SOFT TISSUES: No acute findings. IMPRESSION: Occlusive DVT demonstrated within the right popliteal vein. Dr. Kearney discussed these critical findings with Dr. Jacky Chi via telephone at approximately 05:26 hours EST on 12/30/2023. Electronically signed by: Asad Kearney MD 12/30/2023 05:06 AM CDT Due to temporary technical issues with the PACS/Fluency reporting system, reports are being signed by the in house radiologists without review as a courtesy to insure prompt reporting. The interpreting radiologist is fully responsible for the content of the report.
--- NOTE | 2023-12-30 10:52 | ECHO ---
HEIGHT: 5 ft 10 in WEIGHT: 240 lb 14.4 oz DATE OF STUDY: 12/30/[address]: Elyse Reardon MD 2-DIMENSIONAL: YES M.MODE: YES DOPPLER: YES COLOR FLOW: YES TDS: NO PORTABLE: YES DEFINITY: NO BUBBLE STUDY: NO DIAGNOSIS: RULE OUT RIGHT VENTRICULAR STRAIN DUE TO BILATERAL PE CARDIAC HISTORY: CATHERIZATION: NO SURGERY: NO PROSTHETIC VALVE: NO PACEMAKER: NO MEASUREMENTS (cm) DIASTOLIC (NORMALS) SYSTOLIC (NORMALS) IVSd 1.1 (0.6-1.2) LA Diam 2.9 (1.9-4.0) LVEF 62% LVIDd 3.2 (3.5-5.7) LVIDs 2.1 (2.0-3.5) %FS 33% LVPWd 1.1 (0.6-1.2) Ao Diam 2.5 (2.0-3.7) 2 DIMENSIONAL ASSESSMENT: RIGHT ATRIUM: NORMAL LEFT ATRIUM: NORMAL RIGHT VENTRICLE: NORMAL LEFT VENTRICLE: NORMAL TRICUSPID VALVE: NORMAL MITRAL VALVE: NORMAL PULMONIC VALVE: NORMAL AORTIC VALVE: NORMAL PERICARDIAL EFFUSION: NONE AORTIC ROOT: NORMAL LEFT VENTRICULAR WALL MOTION: NORMAL DOPPLER/COLOR FLOW: GRADE I DIASTOLIC DYSFUNCTION. COMMENTS: 1. NORMAL LEFT VENTRICULAR SYSTOLIC FUNCTION. NORMAL WALL MOTION. LEFT VENTRICULAR EJECTION FRACTION 55-60%. 2. GRADE I DIASTOLIC DYSFUNCTION. 3. MILD ELEVATED RIGHT ATRIAL FILLINGS PRESSURE 15-20 mmHg. TECHNOLOGIST: RICARDO HERRERA
[2023-12-30] MEDS: HYDROCODONE/APAP 7.5/325 MG TAB PO PRN (11:03)
--- NOTE | 2023-12-30 11:07 | RAD REPORT ---
EXAM DESCRIPTION: CT - Chest For Pe Angio - 12/30/2023 6:25 am CLINICAL HISTORY: CHEST PAIN COMPARISON: None Available. TECHNIQUE: CTA of the chest obtained following the uncomplicated intravenous administration of iodin ated contrast. 3-D/MIP reformatted images of the chest available for evaluation. This exam was perfor med according to our departmental dose-optimization program, which includes automated exposure contro l, adjustment of the mA and/or kV according to patient size and/or use of iterative reconstruction te chnique. FINDINGS: Chest: Pulmonary arteries: Contrast bolus is adequate.Multiple filling defects within the right, left, bilat eral lobar, and bilateral segmental pulmonary arterial branches compatible with acute pulmonary embol i. Thyroid: No abnormalities of the visualized thyroid. Great Vessels: Great vessels have normal anatomic configuration. Thoracic Aorta: No abnormalities of the thoracic aorta identified. Heart: Heart is not enlarged. RV:LV ratio of 1.5. Flattening of the intraventricular septum. Lymph Nodes: No enlarged mediastinal lymph nodes identified. Esophagus: No abnormalities of the esophagus identified. Other: No additional findings. Lungs: Minimal dependent atelectasis. No confluent airspace consolidation. Pleura: No pleural effusion or pneumothorax. Trachea/Airways: No abnormalities of the visualized trachea or airways. Bones: Mild endplate spondylosis. Upper Abdomen: Limited images of the upper abdomen demonstrate no definite abnormalities of visualize d portions of the liver, gallbladder, pancreas, spleen, or adrenal glands. Urgent finding reported to Dr. Chi at 12/30/2023 2:59 AM CDT IMPRESSION: Acute pulmonary emboli involving the right, left, bilateral lobar, and bilateral segment al pulmonary arterial branches. Large clot burden. Findings suggestive of right heart strain. Electronically signed by: Daniel Edge DO 12/30/2023 03:00 AM CDT M Due to temporary technical issues with the PACS/Fluency reporting system, reports are being signed by the in house radiologists without review as a courtesy to insure prompt reporting. The interpreting radiologist is fully responsible for the content of the report.
--- NOTE | 2023-12-30 12:08 | RAD REPORT ---
EXAM DESCRIPTION: RAD - Chest Single View - 12/30/2023 12:18 am CLINICAL HISTORY: 58-year-old female with chest pain. TECHNIQUE: Single view, AP portable chest was obtained. COMPARISON: None. FINDINGS: Unremarkable cardiac and mediastinal silhouette. Heart size is normal. Low lung volumes without focal opacity, pneumothorax or pleural effusions. The visualized bones are within normal limits. IMPRESSION: No acute cardiopulmonary abnormalities. Electronically signed by: Sangita Coronado MD 12/30/2023 12:41 AM CDT Due to temporary technical issues with the PACS/Fluency reporting system, reports are being signed by the in house radiologists without review as a courtesy to insure prompt reporting. The interpreting radiologist is fully responsible for the content of the report.
--- NOTE | 2023-12-30 12:33 | P.CNS ---
Date of Consult: 12/30/23 Reason for Consult: Pulmonary embolism Chief Complaint: Bilateral pulmonary embolism, DVT. History of Present Illness: Patient is 58 years of age admitted with Felicia breath and near syncope. She said no medical problems before no medications has never been sick no prior history of thromboembolism no family history of thromboembolism and was invaded with bilateral pulmonary embolism and right-sided DVT this all started at 4:30 PM yesterday and prior to that she was not having any problems Allergies No Known Allergies Allergy (Unverified 12/30/23 05:31) Home Medications: NK [No Home Meds] 12/30/23 - Past Medical/Surgical History Past Medical History: Patient denies medical history Past Surgical History: Patient denies surgical history - Social History Alcohol use: Yes Caffeine use: Yes Place of Residence: Home Review of Systems 10-point ROS is otherwise unremarkable Physical Examination Temp Pulse Resp BP Pulse Ox 97 F 85 18 138/83 96 12/30/23 10:30 12/30/23 10:30 12/30/23 11:03 12/30/23 10:30 12/30/23 11:03 General: Alert, In no apparent distress, Oriented x2 Neck: Supple Respiratory: Clear to auscultation bilaterally Cardiovascular: No edema, Regular rate/rhythm, Normal S1 S2 Gastrointestinal: Normal bowel sounds, Soft and benign Musculoskeletal: No clubbing, No swelling Laboratory Data (last 24 hrs) 12/30/23 12/30/23 12/30/23 00:25 00:25 00:25 WBC 7.50 Hgb 11.7 L Hct 34.9 L Plt Count 226 PT 12.2 INR 1.11 Sodium 139 Potassium 3.8 BUN 9 Creatinine 0.91 Glucose 113 H Magnesium 2.4 Total Bilirubin 0.4 AST 22 ALT 14 Alkaline Phosphatase 96 - Problems (1) Pulmonary embolism Current Visit: Yes Status: Acute Plan: Patient is 58 years of age admitted with acute episode of right-sided DVT and bilateral pulmonary embolism echocardiogram did not show any evidence of CorPulmonale/plan to continue to monitor patient change to subcutaneous Lovenox for now will not qualify for thrombolytic therapy will ambulate patient no restriction lab CT scan reviewed. The year troponins are most likely elevated from right ventricular strain. Patient does not have significant hypoxemia or hypotension will also check per sat off oxygen. Labs are otherwise unremarkable Qualifiers: Acute cor pulmonale presence: without acute cor pulmonale
--- NOTE | 2023-12-30 14:23 | EKG ---
Test Date: 2023-12-29 Test Time: 23:42:30 Histologist Technologist: KARLY MEASUREMENT RESULTS: Intervals: Rate: 89 CA: 174 QRSD: 80 QT: 400 QTc: 486 [place]: P: 64 CA: 174 QRS: 14 T: 30 INTERPRETIVE STATEMENTS: Normal sinus rhythm Low voltage QRS Prolonged QT Abnormal ECG Compared to ECG 02/15/2004 18:36:00 Prolonged QT interval now present Electronically Signed On 12-30-23 14:22:46 CDT by Gaurav Jolly
[2023-12-31 07:09] LABS: Absolute Eosinophils 0.1 K/uL (0-0.5); Absolute Lymphocytes (CBC) 1.5 K/uL (0.7-4.9); Absolute Monocytes 0.5 K/uL (0.1-1.3); Absolute Neutrophil 3.9 K/uL (1.8-8.0); Anion Gap 7.9 mEq/L (5.0-15.0); Basophils % 0.3 % (0-1.3); Eosinophils % 2.4 % (0-4.4); Hematocrit 32.6 % (36.0-45.0); Lymphocytes % 24.3 % (15.3-44.8); MCH 28.2 pg (27.0-35.0); MCHC 33.9 g/dL (32.0-36.0); MCV 83.3 fL (80-100); MPV 8.7 fL (7.6-11.3); Monocytes % 8.5 % (3.3-12.3); Neutrophils % 64.5 % (41.7-73.7); Nucleated Red Blood Cells % 0.1 % (0-0); Platelets 211 thou/uL (152-406); Potassium 3.9 mEq/L (3.5-5.1); RBC Red Blood Cell Count 3.92 M/uL (3.86-4.86)
[2023-12-31 08:14] LABS: Calcium Oxalate Crystals- Ur Few /HPF (None Seen); Specific Gravity > 1.030 (1.005-1.030); Sqamous Epithelial <5 /HPF (None Seen); Urine Bacteria <20 /HPF (<20); Urine Bilirubin NEGATIVE (Negative); Urine Blood Negative (Negative); Urine Clarity Clear (Clear); Urine Color Yellow (Yellow); Urine Culture Reflex Order NOT NEEDED; Urine Glucose NEGATIVE (Negative); Urine Ketones NEGATIVE (Negative); Urine Micro Reflex YN NO BILL MICROSCOPIC; Urine Mucus Slight /HPF (None Seen); Urine Nitrite NEGATIVE (Negative); Urine Protein NEGATIVE (Negative); Urine RBC <5 /HPF (None Seen); Urine Urobilinogen Normal (Normal); Urine WBC <5 /HPF (<5)
[2023-12-31 08:15] LABS: Barbiturates NEGATIVE (NEGATIVE); Benzodiazepines NEGATIVE (NEGATIVE); Cocaine NEGATIVE (NEGATIVE); METHAMPHETAM POSITIVE (NEGATIVE); Methadone NEGATIVE (NEGATIVE); Opiates POSITIVE (NEGATIVE); Phencyclidine NEGATIVE (NEGATIVE); THC Cannibis NEGATIVE (NEGATIVE)
--- NOTE | 2023-12-31 10:27 | P.PN ---
Subjective Date of Service: 12/31/23 Chief Complaint: Bilateral pulmonary embolism, DVT. Pt is resting comfortably in bed. She is using 2L BNC. Continue lovenox 110mg subq BID for bilateral PE and RLE DVT. Echo shows EF 55 - 60% with grade I diastolic dysfunction with mild increased right atrial filling pressure. No oth er complaints Review of Systems General: Unremarkable Eyes: Unremarkable ENT: Unremarkable Respiratory: Unremarkable Cardiovascular: Unremarkable Gastrointestinal: Unremarkable Genitourinary: Unremarkable Musculoskeletal: Unremarkable Integumentary: Unremarkable Neurological: Unremarkable Lymphatics: Unremarkable Physical Examination - Vital Signs Temperature: 98.9 F Blood Pressure: 144/82 Pulse: 83 Respirations: 16 Pulse Ox (%): 95 - Physical Exam General: Alert, In no apparent distress, Oriented x3 HEENT: Atraumatic, Normocephalic, PERRLA Neck: Supple, 2+ carotid pulse no bruit Respiratory: Clear to auscultation bilaterally, Normal air movement Cardiovascular: No edema, Normal pulses, Regular rate/rhythm, Normal S1 S2 Capillary refill: <2 Seconds Gastrointestinal: Normal bowel sounds, Soft and benign Musculoskeletal: No clubbing, No swelling Integumentary: No rashes, No breakdown Neurological: Normal gait, Normal speech, Normal strength at 5/5 x4 extr Lymphatics: No axilla or inguinal lymphadenopathy Assessment And Plan - Plan Bilateral pulmonary embolism: Per CT chest. Will continue lovenox 110mg subq BID. Pt will be discharged with Eliquis. Echo shows EF 55 - 60% with grade I di astolic dysfunction with mild increased right atrial filling pressure. Pulm is following. Right lower extremity DVT: Will continue therapeutic lovenox. Pulm is following. Pt need to take AC for at least 3 - 6 months. NSTEMI: Troponin is elevated, likely due to PE and DVT. Trend troponin 616 -> 422 -> 318. Consulted cardiology. Will continue therapeutic lovenox. Hypokalemia: K is 3.9 <- 3.1. Will replete and monitor. Anemia: Hgb is 11,7. Will monitor H/H DVT prophylaxis: lovenox Code: Full code Disposition: Pending hospital course.
--- NOTE | 2023-12-31 12:07 | P.DS ---
Admission Date: 12/30/23 Discharge Date: 12/31/23 Disposition: ROUTINE DISCHARGE Discharge Condition: GOOD Reason for Admission: Bilateral pulmonary embolism, DVT. Brief History of Present Illness: 58-year-old female patient with no significant medical history was evaluated for episode of worsening shortness of breath. She reported episodes of breath earlier earlier today with associated mild pleuritic component to it. She got more tired and lethargy so she had to come to the ED. In the ED she was worked up and found to have significant abnormalities which include imaging study concerning for bilateral pulm embolism and a right lower extremity DVT. She denies overt episode of chest pain, nausea, vomiting. No prior history of DVTs. She was started on heparin drip and was admitted for inpatient care. Workup also revealed significant elevated troponin of 600. Hospital Course: Pt is a 58yo female with no significant past medical history who presented with worsening shortness of breath and neck pain. It hurt to take a deep breath. On admission, CTA chest showed bilateral PE without RV strain and doppler ultrasound showed right leg DVT. We started heparin drip that was later changed to therapeutic lovenox and also consulted Pulm. Pt had elevated troponin due to PE/ DVT. The troponin trended down (616 -> 422 -> 318). Echo showed EF 55 - 60% with grade I diastolic dysfunction with mild increased right atrial filling pressure. We repleted potassium and monitored hemoglobin. Pt was advised to take ELiquis 10mg po BID for 1 week, then switch to Eliquis 5mg po BID for at least 3 - 6 months. Pt was in NAD prior to discharge. Vital Signs/Physical Exam: Temp Pulse Resp BP Pulse Ox 98.9 F 83 16 144/82 H 95 12/31/23 10:32 12/31/23 10:32 12/31/23 10:32 12/31/23 10:32 12/31/23 10:32 Laboratory Data at Discharge: WBC 6.00 thou/uL (4.3-10.9) 12/31/23 06:25 Hgb 11.0 g/dL (12.0-15.0) L 12/31/23 06:25 Hct 32.6 % (36.0-45.0) L 12/31/23 06:25 Plt Count 211 thou/uL (152-406) 12/31/23 06:25 PT 12.2 SECONDS (9.5-12.5) 12/30/23 00:25 INR 1.11 12/30/23 00:25 APTT Cancelled 12/30/23 13:00 Sodium 138 mEq/L (136-145) 12/31/23 06:25 Potassium 3.9 mEq/L (3.5-5.1) 12/31/23 06:25 BUN 8 mg/dL (7-18) 12/31/23 06:25 Creatinine 0.75 mg/dL (0.55-1.02) 12/31/23 06:25 Glucose 118 mg/dL (74-106) H 12/31/23 06:25 Magnesium 2.4 mg/dL (1.6-2.4) 12/30/23 00:25 Total Bilirubin 0.4 mg/dL (0.2-1.0) 12/30/23 00:25 AST 22 U/L (15-37) 12/30/23 00:25 ALT 14 U/L (13-56) 12/30/23 00:25 Alkaline Phosphatase 96 U/L (45-117) 12/30/23 00:25 Home Medications: Apixaban [Eliquis] 5 mg PO BID 90 Days #180 tablet 12/31/23 New Medications: Apixaban [Eliquis] 5 mg PO BID 90 Days #180 tablet Physician Discharge Instructions: Continue ad alma activity. Take Eliquis 10mg po BID for 1 week , then switch to Eliquis 5mg po BID for at least 3 - 6 months. Follow up with PCP within 1 week. Diet: AHA Activity: Ad amla Followup: NONE,NONE [Primary Care Provider] -
--- NOTE | 2023-12-31 12:36 | P.PN ---
Subjective Date of Service: 12/31/23 Chief Complaint: Bilateral pulmonary embolism, DVT. Subjective: Improving (Patient shortness of breath has improved patient is able to ambulate overhead Kevin pulse ox is only 84%) Review of Systems 10-point ROS is otherwise unremarkable Physical Examination - Vital Signs Temperature: 98 F Blood Pressure: 126/72 Pulse: 78 Respirations: 15 Pulse Ox (%): 91 - Physical Exam General: Alert, Oriented x3 HEENT: Atraumatic Neck: Supple Respiratory: Clear to auscultation bilaterally Cardiovascular: No edema, Regular rate/rhythm, Normal S1 S2 Gastrointestinal: Normal bowel sounds, Soft and benign Assessment And Plan - Current Problems (Diagnosis) (1) Pulmonary embolism Current Visit: Yes Status: Acute Plan: Patient hasn't proved subjectively is able to ambulate to the bathroom however recent pulse ox document documented at 8 AM this morning showed a roomier side of only 84%. I have discussed with the hospitalist to cancel discharged until saturation has improved to over 90% and patient is able to walk without significant desaturation CT scan showed a significant burden of blood clots even though there was no evidence of right ventricular strain on the echocardiogram resume Lovenox for now may need to tPA if oxygenation does not improve Qualifiers: Acute cor pulmonale presence: without acute cor pulmonale
[2024-01-01 04:27] LABS: Absolute Eosinophils 0.1 K/uL (0-0.5); Absolute Monocytes 0.5 K/uL (0.1-1.3); Absolute Neutrophil 2.9 K/uL (1.8-8.0); Basophils % 0.4 % (0-1.3); Eosinophils % 2.6 % (0-4.4); Hematocrit 31.6 % (36.0-45.0); Hemoglobin 10.5 g/dL (12.0-15.0); Lymphocytes % 36.1 % (15.3-44.8); MCH 28.1 pg (27.0-35.0); MCHC 33.3 g/dL (32.0-36.0); MCV 84.2 fL (80-100); MPV 8.2 fL (7.6-11.3); Monocytes % 8.2 % (3.3-12.3); Neutrophils % 52.7 % (41.7-73.7); Platelets 198 thou/uL (152-406); RBC Red Blood Cell Count 3.75 M/uL (3.86-4.86)
[2024-01-01 04:48] LABS: Anion Gap 7.4 mEq/L (5.0-15.0); Potassium 4.4 mEq/L (3.5-5.1)
[2024-01-01] MEDS ORDERED: TENECTEPLASE 50 MG/10 ML VIAL IV ONE (09:00)
[2024-01-01] MEDS ORDERED: Enoxaparin 120 MG/0.8 ML SYR SQ SCH (09:00)
--- NOTE | 2024-01-01 10:39 | P.PN ---
Subjective Date of Service: 01/01/24 Chief Complaint: Bilateral pulmonary embolism, DVT. Pt is resting comfortably in bed. She is using 2L BNC. Pt desats to 85% when she is walking. Pulm wanst to give tPA but pt wanst to think about it. Will continue lovenox 110mg subq BID for bilateral PE and RLE DVT. Echo shows EF 55 - 60% with grade I diastolic dysfunction with mild increased right atrial filling pressure. No other complaints Review of Systems General: Unremarkable Eyes: Unremarkable ENT: Unremarkable Respiratory: SOB with Excertion Cardiovascular: Unremarkable Gastrointestinal: Unremarkable Genitourinary: Unremarkable Musculoskeletal: Unremarkable Integumentary: Unremarkable Neurological: Unremarkable Lymphatics: Unremarkable Physical Examination - Vital Signs Temperature: 97.5 F Blood Pressure: 129/75 Pulse: 76 Respirations: 16 Pulse Ox (%): 95 - Physical Exam General: Alert, In no apparent distress, Oriented x3 HEENT: Atraumatic, Normocephalic, PERRLA Neck: Supple, 2+ carotid pulse no bruit, JVD not distended Respiratory: Clear to auscultation bilaterally, Normal air movement, Diminished Cardiovascular: No edema, Normal pulses, Regular rate/rhythm, Normal S1 S2 Capillary refill: <2 Seconds Gastrointestinal: Normal bowel sounds, Soft and benign, Non-distended Musculoskeletal: No clubbing, No swelling Integumentary: No rashes, No breakdown Neurological: Normal gait, Normal speech, Normal strength at 5/5 x4 extr Lymphatics: No axilla or inguinal lymphadenopathy Assessment And Plan - Plan Bilateral pulmonary embolism: Per CT chest. Pt desats when she walks around. Pulm wants to give tPA but pt wants to think about it. Will continue lovenox 110mg subq BID. Pt will be discharged with Eliquis. Echo shows EF 55 - 60% with grade I diastolic dysfunction with mild increased right atrial filling pressure. Pulm is following. Right lower extremity DVT: Will continue therapeutic lovenox. Pulm is following. Pt need to take AC for at least 3 - 6 months. NSTEMI: Troponin is elevated, likely due to PE and DVT. Trend troponin 616 -> 422 -> 318. Consulted cardiology. Will continue therapeutic lovenox. Hypokalemia: K is 4.4 <- 3.9 <- 3.1. Will replete and monitor. Anemia: Hgb is 10.5 <- 11.7. Will monitor H/H DVT prophylaxis: lovenox Code: Full code Disposition: Pending hospital course.
[2024-01-01] MEDS: Enoxaparin 120 MG/0.8 ML SYR SQ SCH (10:47)
[2024-01-01] MEDS ORDERED: HYDROCODONE/APAP 7.5/325 MG TAB ONE (16:58)
[2024-01-02 05:29] LABS: Absolute Eosinophils 0.2 K/uL (0-0.5); Absolute Lymphocytes (CBC) 1.8 K/uL (0.7-4.9); Absolute Monocytes 0.5 K/uL (0.1-1.3); Absolute Neutrophil 2.9 K/uL (1.8-8.0); Basophils % 0.7 % (0-1.3); Eosinophils % 3.1 % (0-4.4); Hematocrit 33.8 % (36.0-45.0); Hemoglobin 11.4 g/dL (12.0-15.0); Lymphocytes % 33.4 % (15.3-44.8); MCH 28.1 pg (27.0-35.0); MCHC 33.7 g/dL (32.0-36.0); MCV 83.4 fL (80-100); MPV 8.1 fL (7.6-11.3); Neutrophils % 53.8 % (41.7-73.7); Nucleated Red Blood Cells % 0.1 % (0-0); Platelets 218 thou/uL (152-406); RBC Red Blood Cell Count 4.05 M/uL (3.86-4.86); Red Cell Distribution Width 14.8 % (12.1-15.2)
[2024-01-02 05:38] LABS: Anion Gap 5.7 mEq/L (5.0-15.0); Potassium 4.7 mEq/L (3.5-5.1)
[2024-01-02 05:45] VITALS: BMI 36.2
[2024-01-02] MEDS ORDERED: APIXABAN 5 MG TABLET ONE (09:37)
[2024-01-02] MEDS: APIXABAN 5 MG TABLET PO SCH (09:57)
--- NOTE | 2024-01-02 10:28 | P.PN ---
Subjective Date of Service: 01/01/24 Chief Complaint: Bilateral pulmonary embolism, DVT. C/o dyspnea on exertion and dizziness on standing up RA sat low Review of Systems 10-point ROS is otherwise unremarkable Physical Examination - Vital Signs Temperature: 97.4 F Blood Pressure: 127/89 Pulse: 85 Respirations: 17 Pulse Ox (%): 94 - Physical Exam General: Alert, Oriented x3 Respiratory: Clear to auscultation bilaterally Cardiovascular: No edema, Regular rate/rhythm Assessment And Plan - Current Problems (Diagnosis) (1) Pulmonary embolism Current Visit: Yes Status: Acute Plan: c/o diziness and dyspnea on exertion. Not much better. Transferrred to ICU for poss Thrombolytic.Pt refused . Continue to monitor I persisnt hypoxemia consider TPA [place] Qualifiers: Acute cor pulmonale presence: without acute cor pulmonale
--- NOTE | 2024-01-02 10:30 | P.PN ---
Subjective Date of Service: 01/02/24 Chief Complaint: Bilateral pulmonary embolism, DVT. Doing much better today "Like a cloud parted" dyspnea has inmproved Review of Systems 10-point ROS is otherwise unremarkable Physical Examination - Vital Signs Temperature: 97.4 F Blood Pressure: 127/89 Pulse: 85 Respirations: 17 Pulse Ox (%): 94 - Physical Exam General: Oriented x3 Respiratory: Clear to auscultation bilaterally Cardiovascular: No edema, Regular rate/rhythm, Normal S1 S2 Assessment And Plan - Current Problems (Diagnosis) (1) Pulmonary embolism Current Visit: Yes Status: Acute Plan: Doing better no more dizziness. Ambulate change to Eliquis. Transfer to the floor. oxygneation has imroved 95% RA Qualifiers: Acute cor pulmonale presence: without acute cor pulmonale
--- NOTE | 2024-01-02 10:32 | P.PN ---
Subjective Date of Service: 01/02/24 Chief Complaint: Bilateral pulmonary embolism, DVT. Pt is resting comfortably in bed. She is off. Oxygenating well on room air(92%). No nmeed for tPA. Will continue Eliquis 5mg po BID for bilateral PE and RLE DVT. Echo shows EF 55 - 60% with grade I diastolic dysfunction with mild increased right atrial filling pressure. Will transfer pt out of the ICU. No other complaints Review of Systems General: Unremarkable Eyes: Unremarkable ENT: Unremarkable Respiratory: Unremarkable Cardiovascular: Unremarkable Gastrointestinal: Unremarkable Genitourinary: Unremarkable Musculoskeletal: Unremarkable Integumentary: Unremarkable Neurological: Unremarkable Lymphatics: Unremarkable Physical Examination - Vital Signs Temperature: 97.4 F Blood Pressure: 127/89 Pulse: 85 Respirations: 17 Pulse Ox (%): 94 - Physical Exam General: Alert, In no apparent distress, Oriented x3, Obese HEENT: Atraumatic, Normocephalic, PERRLA Neck: Supple, 2+ carotid pulse no bruit Respiratory: Clear to auscultation bilaterally, Normal air movement, Diminished Cardiovascular: No edema, Normal pulses, Regular rate/rhythm, Normal S1 S2 Capillary refill: <2 Seconds Gastrointestinal: Normal bowel sounds, Soft and benign, Non-distended Musculoskeletal: No clubbing, No swelling Integumentary: No rashes, No breakdown Neurological: Normal gait, Normal speech, Normal strength at 5/5 x4 extr Lymphatics: No axilla or inguinal lymphadenopathy Assessment And Plan - Plan Bilateral pulmonary embolism: Per CT chest. Pt is oxygenating well on room air (92%). No need for tAP. Will continue Eliquis 5mg po BID. Echo shows EF 55 - 60% with grade I diastolic dysfunction with mild increased right atrial filling pressure. Pulm is following. Right lower extremity DVT: Will continue Eliquis for at least 3 - 6 months. NSTEMI: Troponin is elevated, likely due to PE and DVT. Trend troponin 616 -> 422 -> 318. Consulted cardiology. Will continue eliquis. Hypokalemia: K is 4.7<- 4.4 <- 3.9 <- 3.1. Will replete and monitor. Anemia: Hgb is 11.4 <- 10.5 <- 11.7. Will monitor H/H DVT prophylaxis: lovenox Code: Full code Disposition: Pending hospital course. Will transfer pt out of the ICU
[2024-01-03 06:48] LABS: Absolute Eosinophils 0.2 K/uL (0-0.5); Absolute Lymphocytes (CBC) 1.4 K/uL (0.7-4.9); Absolute Monocytes 0.4 K/uL (0.1-1.3); Absolute Neutrophil 2.8 K/uL (1.8-8.0); Basophils % 0.3 % (0-1.3); Eosinophils % 3.5 % (0-4.4); Hematocrit 34.6 % (36.0-45.0); Hemoglobin 11.6 g/dL (12.0-15.0); Lymphocytes % 28.6 % (15.3-44.8); MCHC 33.6 g/dL (32.0-36.0); MCV 83.4 fL (80-100); Monocytes % 8.2 % (3.3-12.3); Neutrophils % 59.4 % (41.7-73.7); Nucleated Red Blood Cells % 0.1 % (0-0); Platelets 251 thou/uL (152-406); RBC Red Blood Cell Count 4.15 M/uL (3.86-4.86); Red Cell Distribution Width 14.7 % (12.1-15.2)
[2024-01-03 06:56] LABS: Anion Gap 6.4 mEq/L (5.0-15.0); Potassium 4.4 mEq/L (3.5-5.1)
[2024-01-03 10:27] VITALS: BP 124/70; TEMP 97.1; O2SAT 92
--- NOTE | 2024-01-03 10:45 | P.DS ---
Admission Date: 12/30/23 Discharge Date: 01/03/24 Disposition: ROUTINE DISCHARGE Discharge Condition: GOOD Reason for Admission: Bilateral pulmonary embolism, DVT. Brief History of Present Illness: 58-year-old female patient with no significant medical history was evaluated for episode of worsening shortness of breath. She reported episodes of breath earlier earlier today with associated mild pleuritic component to it. She got more tired and lethargy so she had to come to the ED. In the ED she was worked up and found to have significant abnormalities which include imaging study concerning for bilateral pulm embolism and a right lower extremity DVT. She denies overt episode of chest pain, nausea, vomiting. No prior history of DVTs. She was started on heparin drip and was admitted for inpatient care. Workup also revealed significant elevated troponin of 600. Hospital Course: Pt is a 58yo female with no significant past medical history who presented with worsening shortness of breath and neck pain. It hurt to take a deep breath. On admission, CTA chest showed bilateral PE without RV strain and doppler ultrasound showed right leg DVT. We started heparin drip that was later changed to therapeutic lovenox and also consulted Pulm. Pt had elevated troponin due to PE/ DVT. The troponin trended down (616 -> 422 -> 318). Echo showed EF 55 - 60% with grade I diastolic dysfunction with mild increased right atrial filling pressure. We repleted potassium and monitored hemoglobin. Pt continued have low oxygen saturation with minimal activity. She was transferred to the ICU for possible tPA. Pt did not want the tPA. We continued therapeutic lovenox. The low oxygen saturation with exertion resolved. Pt was able to ambulate without decrease in her oxygen saturation. We transferred her to the medicine floor and pt was advised to take ELiquis 5mg po BID for at least 3 - 6 months. We repleted potassium. Pt was in NAD prior to discharge. Vital Signs/Physical Exam: Temp Pulse Resp BP Pulse Ox 97.1 F 83 18 124/70 92 01/03/24 08:00 01/03/24 08:00 01/03/24 08:00 01/03/24 08:00 01/03/24 08:00 Laboratory Data at Discharge: WBC 4.80 thou/uL (4.3-10.9) 01/03/24 06:27 Hgb 11.6 g/dL (12.0-15.0) L 01/03/24 06:27 Hct 34.6 % (36.0-45.0) L 01/03/24 06:27 Plt Count 251 thou/uL (152-406) 01/03/24 06:27 PT 12.2 SECONDS (9.5-12.5) 12/30/23 00:25 INR 1.11 12/30/23 00:25 APTT Cancelled 12/30/23 13:00 Sodium 139 mEq/L (136-145) 01/03/24 06:27 Potassium 4.4 mEq/L (3.5-5.1) 01/03/24 06:27 BUN 10 mg/dL (7-18) 01/03/24 06:27 Creatinine 0.75 mg/dL (0.55-1.02) 01/03/24 06:27 Glucose 98 mg/dL (74-106) 01/03/24 06:27 Magnesium 2.4 mg/dL (1.6-2.4) 12/30/23 00:25 Total Bilirubin 0.4 mg/dL (0.2-1.0) 12/30/23 00:25 AST 22 U/L (15-37) 12/30/23 00:25 ALT 14 U/L (13-56) 12/30/23 00:25 Alkaline Phosphatase 96 U/L (45-117) 12/30/23 00:25 Home Medications: Apixaban [Eliquis] 5 mg PO BID 90 Days #180 tablet 12/31/23 New Medications: Apixaban [Eliquis] 5 mg PO BID 90 Days #180 tablet Physician Discharge Instructions: Continue ad alma activity. Take Eliquis 5mg po BID for at least 3 - 6 months. Follow up with PCP within 1 week. Diet: AHA Activity: Ad alma Followup: NONE,NONE [Primary Care Provider] -
== END 2024-01-03 11:35 | disposition home or self-care (01) | DRG 280 ==
LOC: ER 23:20 → ERHOLD 12-30 03:19 → 4TH 12-30 03:55 → 3RD-ICU 01-01 07:57 → 4TH 01-02 13:25
PROVIDERS: ADMIT Internal Medicine Nephrology; ATTEND Hospitalist
DX: I82.431 Acute embolism and thrombosis of right popliteal vein (principal); I26.99 Other pulmonary embolism without acute cor pulmonale; I21.4 Non-ST elevation (NSTEMI) myocardial infarction; R79.89 Other specified abnormal findings of blood chemistry; E87.6 Hypokalemia; D64.9 Anemia, unspecified; Z79.01 Long term (current) use of anticoagulants
CPT/HCPCS: 36415; 71045; 71275; 80048; 80076; 80307; 81001; 83735; 83880; 84439; 84443; 84484; 85025; 85610; 85730; 86140; 87804; 87811; 93005; 93306; 93970; 96361; 96365; 97116; 97161; 99285; J1644; J1650; J7030; Q9967

== ENCOUNTER 2024-04-10 16:54 | Emergency (ER) | payer OTHER ==
--- OUTSIDE RECORDS SUMMARY | 2024-04-10 16:58 | XMS REPORT | Continuity of Care Document ---
Author Name Unknown Address [address] [facility] [address] [place] [address] [facility] Address [address] [facility] [address] [place] [address] Care Team Providers Care Message Clerk Name Role Phone Kevin Boggs MD Primary Care Physician DR NICHOL MELCHOR Attending Clinician Unavailable CAMILO BAHENA Attending Clinician Unavailable DANNI GILLETTE Attending Clinician Unavailable ONLY, HEM/ONC NURSE Attending Clinician UnaISAURA Barth Attending Clinician Unavailable MD MICHEL Attending Clinician Unavailab ELY Heller Attending Clinician Unavailable JOSE MANUEL MADDEN Attending Clinician Unavailable [facility] Attending Clinician Unavailable , [facility] Attending [facility] n Unavailable Kevin Boggs MD Attending Clinician + [phone] KEVIN BOGGS Attending Clinician DR NICHOL Mccray Admitting Clinician Unavailable Payers Payer Name Policy Type Policy Number Effective Date Expirati on Date Source [facility] DONAVAN DIEZ COPAY FOCUS 9 [id number] 2024 00:00:00 Problems Condition Name Condition Details Condition Category Status Onset Date Resolution Date Last Treatment Date Treating Clinician Comments Source Prediabete s Prediabete s Disease Active 01-18 00:00: 00 Deana Seybold - Externa l DVT (deep venous thrombosis ) (multi HCC) DVT (deep venous thrombosis ) (multi HCC) Disease Active 01-05 00:00: 00 Deana Brandona julio Pulmonary embolus (multi HCC) Pulmonary embolus (multi HCC) Disease Active 01-05 00:00: 00 Deana Brandona julio Hypercoagu lable state (multi HCC) Hypercoagu lable state (multi HCC) Disease Active 01-05 00:00: 00 Deana Brandona julio Obesity Obesity Disease Active 01-05 00:00: 00 Deana Brandona julio Hospital discharge follow-up Hospital discharge follow-up Disease Active 01-05 00:00: 00 Deana Brandona julio No known active problems No known active problems Disease [facility] Allergies, Adverse Reactions, Alerts Allergy Name Allergy Type Status Severity Reaction(s) Onset Date Inactive Date Treating Clinician Comments Source NO KNOWN ALLERGIE S Drug Class Active [facility] Social History Social Habit Start Date Stop Date Quantity Comments Source Sexual orientation [employer] ePnny - External History SDOH Alcohol Frequency [facility] History SDOH Alcohol Std Drinks [facility] History SDOH Alcohol Binge [facility] Exposure to SARS-CoV-2 (event) Not sure [facility] Alcoholic beverage intake 2024-04-07 00:00:00 2024-04-07 00:00:00 Current drinker of alcohol (finding) Deana Penny - External Alcohol intake 2024-01-06 00:00:00 2024-01-06 00:00:00 Current drinker of alcohol (finding) Deana Penny - External Education 2024-01-06 00:00:00 2024-01-06 00:00:00 15 Deana Penny - External Alcohol Comment 2024-01-06 00:00:00 2024-01-06 00:00:00 5 years agoe she cut down on alcohol, now occasionally Deana Penny - External Tobacco use and exposure 2024-01-04 00:00:00 2024-01-04 00:00:00 Smokeless tobacco non-user Deana Penny - External History of Social function 2024-01-04 00:00:00 2024-01-04 00:00:00 Deana Baker External Sex [birth year] at 1965 00:00:00 1965 00:00:00 Deana Baker External Smoking Status Start Date Stop Date Source Never smoked tobacco Deana Baker External Medications Ordered Medication Name Filled Medication Name Start Date Stop Date Current Medication? Ordering Clinician Indication Dosage Frequency Signature (SIG) Comments Components Source Meclizine HCl 25 MG oral Tablet 04-07 00:00: 00 Yes [id number] 25mg Q.[id number] 3D Take 1 tablet (25 mg total) by mouth 3 times daily as needed. Deana kim Ondansetron (ZOFRAN) 4 MG oral TABLET DISPERSIBLE 04-07 00:00: 00 Yes [id number] 4mg Q.02018986 [id number] 3D Take 1 tablet (4 mg total) by mouth every 8 hours as needed for nausea. Deana kim Doxycycline Hyclate 100 MG oral Tablet 04-07 00:00: 00 Yes [id number] 100mg Q.5D Take 1 tablet (100 mg total) by mouth 2 times daily. Deana kim Blood Glucose Monitoring Suppl (Blood Glucose Monitor System) w/Device does not apply Kit 01-24 00:00: 00 Yes [id number] Check BS daily. Deana kim Glucose Blood in vitro Strip 01-24 00:00: 00 Yes [id number] 1{each} QD 1 each by other route daily Check BS daily. Deana kim Lancets 33G does not apply Misc 01-24 00:00: 00 Yes [id number] 1U QD 1 unit by does not apply route daily Check BS daily. Deana kim Cyclobenzap rine HCl 10 MG oral Tablet 01-18 00:00: 00 04-07 00:00 :00 No [id number] 5mg QD Take 0.5 tablets (5 mg total) by mouth nightly as needed for muscle spasms. Deana kim methylPREDN ISolone (Medrol) 4 MG oral Tablet Therapy Pack 408 00:00: 00 02-10 00:00 :00 No 1{ade} Take 1 ade by mouth See Admin Instructio ns Use as directed.. Deana kim Cyclobenzap rine HCl 10 MG oral Tablet 4-08 00:00: 00 01-18 00:00 :00 No 10mg QD Take 1 tablet (10 mg total) by mouth nightly as needed for muscle spasms. Deana kim Apixaban (Eliquis) 5 MG oral Tablet 01-05 11:47: 02 01-05 00:00 :00 No 5mg Take 1 tablet (5 mg total) by mouth 2 times daily. Deana kim Apixaban (Eliquis) 5 MG oral Tablet 01-05 00:00: 00 Yes [id number] 5mg Q.5D Take 1 tablet (5 mg total) by mouth 2 times daily. Deana kim dextroamphe tamine-amph etamine (ADDERALL) 30 mg tablet 7-27 00:00: 00 Yes [id number] 30mg Take 1 tablet by mouth in the morning and 1 tablet in the evening. [facility] dextroamphe tamine-amph etamine (ADDERALL) 30 mg tablet 6-23 00:00: 00 Yes [id number] 30mg Take 1 tablet by mouth 2 (two) times daily. [facility] dextroamphe tamine-amph etamine (ADDERALL) 30 mg tablet 6-21 00:00: 00 Yes [id number] 30mg Take 1 tablet by mouth 2 (two) times daily. [facility] dextroamphe tamine-amph etamine (ADDERALL) 30 mg tablet 5-11 00:00: 00 Yes [id number] 30mg Take 1 tablet by mouth 2 (two) times daily. [facility] dextroamphe tamine-amph etamine (ADDERALL) 30 mg tablet 4-11 00:00: 00 Yes [id number] 30mg Take 1 tablet by mouth 2 (two) times daily. [facility] traZODone 50 mg tablet 3- 00:00: 00 Yes [id number] 50mg Take 1 tablet by mouth at bedtime. [facility] dextroamphe tamine-amph etamine (ADDERALL) 30 mg tablet 3- 00:00: 00 01-19 00:00 :00 No [id number] 30mg Take 1 tablet by mouth 2 (two) times daily. [facility] dextroamphe tamine-amph etamine (ADDERALL) 30 mg tablet 11-17 00:00: 00 Yes [id number] 30mg Take 1 tablet by mouth 2 (two) times daily. [facility] dextroamphe tamine-amph etamine (ADDERALL) 30 mg tablet 2020-10 2 00:00: 00 11-17 00:00 :00 No [id number] 30mg Take 1 tablet by mouth 2 (two) times daily. [facility] dextroamphe tamine-amph etamine (ADDERALL) 30 mg tablet 2020-10 116 00:00: 00 Yes [id number] 30mg Take 1 tablet by mouth 2 (two) times daily. [facility] dextroamphe tamine-amph etamine (ADDERALL) 30 mg tablet 2020-10 112 00:00: 00 Yes [id number] 30mg Take 1 tablet by mouth 2 (two) times daily. [facility] busPIRone 5 mg tablet 2020-10 0-14 00:00: 00 Yes [id number] 5mg Take 1 tablet by mouth 2 (two) times daily. [facility] dextroamphe tamine-amph etamine (ADDERALL) 20 mg tablet 2020-10 0-14 00:00: 00 08-22 00:00 :00 No [id number] 20mg Take 1 tablet by mouth daily. [facility] Vital Signs Vital Name Observation Time Observation Value Comments S ource Systolic blood pressure 2024-04-07 21:21:00 130 mm[Hg] Deana Seybo ld - External Diastolic blood pressure 2024-04-07 21:21:00 78 mm[Hg] Deana Seybo ld - External Heart rate 2024-04-07 21:21:00 105 /min Kelse y Seybold - External Body temperature 2024-04-07 21:21:00 37.11 Roopa Deana Seybold - External Respiratory rate 2024-04-07 21:21:00 18 /min Deana Seybold - External Body height 2024-04-07 21:21:00 177.8 cm Paige ey Seybold - External Body weight 2024-04-07 21:21:00 103.874 kg Paige ey Seybold - External BMI 2024-04-07 21:21:00 32.86 kg/m2 Paige ey Seybold - External Systolic blood pressure 2024-02-11 18:57:00 137 mm[Hg] Deana Seybo ld - External Diastolic blood pressure 2024-02-11 18:57:00 89 mm[Hg] Deana Seybo ld - External Heart rate 2024-02-11 18:57:00 85 /min Kelse y Seybold - External Body temperature 2024-02-11 18:57:00 36.33 Roopa Deana Seybold - External Respiratory rate 2024-02-11 18:57:00 16 /min Deana Seybold - External Body height 2024-02-11 18:57:00 177.8 cm Paige ey Seybold - External Body weight 2024-02-11 18:57:00 107.956 kg Paige ey Seybold - External BMI 2024-02-11 18:57:00 34.15 kg/m2 Paige ey Seybold - External Oxygen saturation in Arterial blood by Pulse oximetry 2024-02-11 18:57:00 98 /min Deana Seybo ld - External Systolic blood pressure 2024-01-19 21:30:00 130 mm[Hg] Deana Seybo ld - External Diastolic blood pressure 2024-01-19 21:30:00 86 mm[Hg] Deana Seybo ld - External Heart rate 2024-01-19 21:30:00 108 /min Dudleyse y Seybold - External Body temperature 2024-01-19 21:30:00 37.22 Roopa Deana Seybold - External Respiratory rate 2024-01-19 21:30:00 16 /min Deana Seybold - External Body height 2024-01-19 21:30:00 177.8 cm Paige ey Seybold - External Body weight 2024-01-19 21:30:00 107.502 kg Paige ey Seybold - External BMI 2024-01-19 21:30:00 34.01 kg/m2 Paige ey Seybold - External Oxygen saturation in Arterial blood by Pulse oximetry 2024-01-19 21:30:00 99 /min Deana Pinedao ld - External Body height 2024-01-17 19:09:00 177.8 cm Paige ey Seybold - External Body weight 2024-01-17 19:09:00 107.502 kg Paige ey Seybold - External BMI 2024-01-17 19:09:00 34.01 kg/m2 Paige ey Seybold - External Systolic blood pressure 2024-01-06 16:46:00 135 mm[Hg] Deana Seybo ld - External Diastolic blood pressure 2024-01-06 16:46:00 85 mm[Hg] Deana Hernandezybo ld - External Heart rate 2024-01-06 16:18:00 89 /min Dudleyse y Seybold - External Body temperature 2024-01-06 16:18:00 36.78 Roopa Deana Hernandezybold - External Body height 2024-01-06 16:18:00 177.8 cm Paige ey Seybold - External Body weight 2024-01-06 16:18:00 107.502 kg Paige ey Seybold - External BMI 2024-01-06 16:18:00 34.01 kg/m2 Paige ey Seybold - External Systolic blood pressure 2021-07-24 14:25:00 137 mm[Hg] [facility] Diastolic blood pressure 2021-07-24 14:25:00 83 mm[Hg] [facility] Heart rate 2021-07-24 14:25:00 78 /min [facility] Body height 2021-07-24 14:25:00 177.8 cm [facility] Body weight 2021-07-24 14:25:00 111.585 kg [facility] BMI 2021-07-24 14:25:00 35.30 kg/m2 [facility] Encounters Start Date/Time End Date/Time Encounter Type Admission Type Attending [facility] Care Department Encounter ID Source 2017-10-08 07:00:00 Inpatient NICHOL CAMACHO [facility] [id number] [facility] 2024-04-19 09:45:00 2024-04-19 09:45:00 [facility] [id number] [facility] 11:45:00 2024-04-14 11:45:00 Outpatient [facility] [id number] [facility] 2024-04-10 00:00:00 2024-04-10 00:00:00 Outpatient DANNI GILLETTE [id number] [facility] 2024-04-07 16:30:00 2024-04-07 16:30:00 Outpatient DANNI GILLETTE [id number] [facility] 2024-02-29 00:00:00 2024-02-29 00:00:00 Outpatient KAITY WANG [id number] [facility] 2024-02-11 14:30:00 2024-02-11 14:30:00 Outpatient DEANA LONG [id number] [facility] 2024-02-11 14:00:00 2024-02-11 14:00:00 Outpatient ISAURA WONG [id number] Deana Seybedu 2024-02-11 00:00:00 2024-02-11 00:00:00 Outpatient MD DEANA SELLERS [id number] [facility] 2024-02-09 15:30:00 2024-02-09 15:30:00 Outpatient ELY MCLAUGHLIN [id number] [facility] 2024-02-07 13:30:00 2024-02-07 13:30:00 Outpatient KAWARISAURA DEANA LONG [id number] Deana Seybedu 2024-01-25 00:00:00 2024-01-25 00:00:00 Outpatient PREZASCAMILO DEANA LONG [id number] Deana Seybedu 2024 00:00:00 2024 00:00:00 Outpatient PREZAS, CAMILO DEANA LONG [id number] Deana Seybedu 2024-01-19 16:30:00 2024-01-19 16:30:00 Outpatient PREZAS, CAMILO DEANA LONG [id number] Deana Seybold 2024-01-19 00:00:00 2024-01-19 00:00:00 Outpatient PREZAS, CAMILO LONG [id number] Deana Hernandezybedu 2024-01-19 00:00:00 2024-01-19 00:00:00 Outpatient PREZAS, CAMILO DEANA LONG [id number] [facility] 2024-01-17 14:35:00 2024-01-17 14:35:00 Outpatient DEANA LONG [id number] Deana Seybold 2024-01-17 14:00:00 2024-01-17 14:00:00 Outpatient MARYANNE, JOSE MANUEL LONG [id number] Deana Seybold 2024-01-17 10:30:00 2024-01-17 10:30:00 Outpatient LAB90 DEANA LONG [id number] Deana Seybold 2024-01-17 00:00:00 2024-01-17 00:00:00 Outpatient MARYANNE, ANEF DEANA LONG [id number] Deana Seybold 2024-01-17 00:00:00 2024-01-17 00:00:00 Outpatient DEANA LONG [id number] Deana Seybold 2024-01-17 00:00:00 2024-01-17 00:00:00 Outpatient GROUP, DEANA LONG [id number] Deana Seybold 2024-01-14 00:00:00 2024-01-14 00:00:00 Outpatient PREZAS, CAMILO LONG [id number] [facility] 2024-01-13 00:00:00 2024-01-13 00:00:00 Outpatient PREZAS, CAMILO LONG [id number] [facility] 2024-01-11 15:00:00 2024-01-11 15:00:00 Outpatient DEANA LONG [id number] Deana [facility] 2024-01-10 00:00:00 2024-01-10 00:00:00 Outpatient PREZAS, CAMILO LONG [id number] Deana [facility] 2024-01-10 00:00:00 2024-01-10 00:00:00 Outpatient PREZAS, CAMILO LONG [id number] Deana [facility] 2024-01-07 00:00:00 2024-01-07 00:00:00 Outpatient PREZAS, CAMILO LONG [id number] Deana [facility] 2024-01-06 11:30:00 2024-01-06 11:30:00 Outpatient PREZAS, CAMILO LONG [id number] Deana [facility] 2022-05-06 00:00:00 2022-05-06 00:00:00 Refill Marysusanaenedelia [facility] .2.840.114 350.1.13.10 4.2.7.2.686 [id number] [facility] 2022-04-02 00:00:00 2022-04-02 00:00:00 Refill Stefania [facility] .2.840.114 350.1.13.10 4.2.7.2.686 [id number] [facility] 2022-03-30 00:00:00 2022-03-30 00:00:00 Refill Stefania [facility] .2.840.114 350.1.13.10 4.2.7.2.686 [id number] [facility] 2022-02-18 00:00:00 2022-02-18 00:00:00 Refill Kevin Boggs [facility] 1.840.114 350.1.13.10 4.2.7.2.686 [id number] [id number] [facility] 2022-01-19 00:00:00 2022-01-19 00:00:00 Refill Kevin Boggs [facility] 1.840.114 350.1.13.10 4.2.7.2.686 [id number] [id number] [facility] 2021-12-11 10:00:00 2021-12-11 10:00:00 Outpatient KEVIN WHEELER [facility] [id number] [facility] 2021-11-24 09:00:00 2021-11-24 09:00:00 Outpatient KEVIN WHEELER [facility] [id number] [facility] 2021-11-17 00:00:00 2021-11-17 00:00:00 Refill Kevin Boggs [facility] 1.840.114 350.1.13.10 4.2.7.2.686 [id number] 044 [id number] [facility] 2021-08-26 00:00:00 2021-08-26 00:00:00 Telephone Kevin Boggs [facility] 1.840.114 350.1.13.10 4.2.7.2.686 [id number] [facility] 2021-08-21 00:00:00 2021-08-21 00:00:00 [facility] 1.840.114 350.1.13.10 4.2.7.2.686 [id number] 044 [id number] [facility] 2021-07-24 09:11:36 2021-07-24 09:41:36 Office Visit Kevin Boggs [facility] 1.2.840.114 350.1.13.10 4.2.7.2.686 [id number] 044 [id number] [facility] 2021-07-24 09:30:00 2021-07-24 09:30:00 Outpatient R KEVIN BOGGS [facility] [id number] [facility] Notes Date/Time Note Provider Source 2024-04-07 16:26:22 [id number]:26:22F ormatting of this note is different from the original.Chief ComplaintPatient presents withDizzinessFeeling lightheaded and dizzy for about a month that is getting worse. She states she feels "drunk". She states it's like this all day unless she lies down. No abdominal pain, no vomiting but does feel nauseated at times. Positive headaches, mostly behind right eye. [place] [id number] ZbscYR1652-51-33T48:26:42Nurse NoteTXT1.2.840.282539.1.13.131.2.7 .2.657108|[id number] for patient tnul41428-4Spcei NoteLNNARRATIVEFormatted C-CDA narrative [id number] Hurst [facility] [place], [place] [id number] [id number]:26:421.2.840.1143 50.1.72.3.15|1.2.840.501828.1.13.1 31.2.7.2.727879_[id number] Tara Fountain ANI II [facility] 2024-02-11 13:59:11 [id number]:59:11F ormatting of this note is different from the original.Chief ComplaintPatient presents withConsultationWas diag. With PE 12/30/23 - [facility].Vincent Galarzaectronically signed by Sandhya Burr LVN at 02/11/2024 2:38 PM [id number] [id number]:38:02Nurse NoteTXT1.2.840.870272.1.13.131.2.7 .2.456384|[id number] for patient kywk52821-7Xrrft NoteLNNARRATIVEFormatted C-CDA narrative [id number] T Clifford [facility] [facility] [id number] [id number]:38:021.2.840.1143 50.1.72.3.15|1.2.840.323654.1.13.1 31.2.7.2.727879_[id number] Sandhya Burr [facility] 2024-01-17 14:09:22 1114-03-51F26:09:22F ormatting of this note is different from the original.Chief ComplaintPatient presents withHip PainRight hip pain for the last 3 weeks with no known injury, fall or [place] [id number] EfugCE7399-07-15G11:29:19Nurse NoteTXT1.2.840.150335.1.13.131.2.7 .2.770924|[id number] for patient rsvc86863-0Euruf NoteLNNARRATIVEFormatted C-CDA narrative [id number] Mendez [facility] [facility].[id number] [id number]:29:191.2.840.1143 50.1.72.3.15|1.2.840.627527.1.13.1 31.2.7.2.727879_[id number] Austin Paredes [facility]
--- NOTE | 2024-04-10 18:17 | RAD REPORT ---
EXAM DESCRIPTION: CT - Head Brain Wo Cont - 04/10/2024 6:11 pm CLINICAL HISTORY: DIZZINESS Headache, drowsiness COMPARISON: <Comparisons> TECHNIQUE: All CT scans are performed using dose optimization technique as appropriate and may inclu de automated exposure control or mA/KV adjustment according to patient size. FINDINGS: No intracranial hemorrhage, hydrocephalus or extra-axial fluid collection.No areas of brai n edema or evidence of midline shift. The paranasal sinuses and mastoids are clear. The calvarium is intact. IMPRESSION: No acute intracranial abnormality.
[2024-04-10 18:50] LABS: Absolute Eosinophils 0.2 K/uL (0-0.5); Absolute Monocytes 0.4 K/uL (0.1-1.3); Absolute Neutrophil 3.6 K/uL (1.8-8.0); Basophils % 0.3 % (0-1.3); Eosinophils % 2.9 % (0-4.4); Hemoglobin 12.3 g/dL (12.0-15.0); MCH 27.4 pg (27.0-35.0); MCHC 32.3 g/dL (32.0-36.0); MCV 84.8 fL (80-100); Monocytes % 6.7 % (3.3-12.3); Neutrophils % 58.1 % (41.7-73.7); Platelets 268 thou/uL (152-406); RBC Red Blood Cell Count 4.49 M/uL (3.86-4.86); Red Cell Distribution Width 14.7 % (12.1-15.2)
[2024-04-10 18:54] LABS: PT Prothrombin Time 14.4 SECONDS (9.4-12.5); Protime INR 1.32
[2024-04-10 19:06] LABS: AST/SGOT 13 U/L (15-37); Albumin 3.6 g/dL (3.4-5.0); Albumin/Globulin Ratio 0.9 (1.1-1.8); Alkaline Phosphatase 85 U/L (45-117); Anion Gap 7.1 mEq/L (5.0-15.0); BUN Blood Urea Nitrogen 10 mg/dL (7-18); Bicarbonate 28 mEq/L (21-32); Bilirubin Total 0.3 mg/dL (0.2-1.0); Globulin 3.9 g/dL (2.3-3.5); Glomerular Filtration Rate 62 ml/min (=/>90); Glucose Level 90 mg/dL (74-106); Magnesium 2.5 mg/dL (1.6-2.4); Potassium 4.1 mEq/L (3.5-5.1); Protein, Total 7.5 g/dL (6.4-8.2); Sodium Level 139 mEq/L (136-145)
[2024-04-10 19:07] LABS: ALT/SGPT < 14 U/L (13-56); Bilirubin Direct < 0.2 mg/dL (0-0.2); Bilirubin Indirect, Calculated 0.1 mg/dL (0.2-0.8); Troponin High Sensitivity < 3.0 pg/mL (<58.9)
[2024-04-10] MEDS ORDERED: MECLIZINE HCL 12.5 MG TAB ONE (20:31)
--- NOTE | 2024-04-10 20:44 | EDPHYS ---
Physician Documentation [facility] Name: Neelam Abdullahi Age: 59 yrs Sex: Female : 1965 Arrival Date: 04/10/2024 Time: 16:54 Bed 7 Private MD: ED Physician Eliseo Hinson HPI: 04/10 17:48 This 59 yrs old Female presents to ER via Ambulatory with complaints of Dizziness, sb4 Nausea. 17:48 Patient reports dizziness x 2 weeks. She does report a history of vertigo, but states sb4 that it typically resolves with meclizine. She states that she has been trying several remedies at home without any improvement. She feels like she is unsteady on her feet, almost like she is intoxicated. She denies any head trauma, she does endorse nausea but no vomiting. She denies any blurry vision. Only medical history is pulmonary embolism and in which she is on blood thinners for. Historical: - Allergies: 17:11 No Known Allergies; ll1 - PMHx: 17:11 P.E.; ll1 - PSHx: 17:11 knee replacement; ll1 - Immunization history:: Adult Immunizations up to date. - Infectious Disease History:: Denies. - Social history:: Smoking status: Patient denies any tobacco usage or history of. ROS: 17:48 Constitutional: Negative for fever, chills, and weight loss, sb4 17:48 Abdomen/GI: Positive for nausea, 17:48 Neuro: Positive for dizziness, 17:48 All other systems are negative, Exam: 17:48 Constitutional: This is a well developed, well nourished patient who is awake, alert, sb4 and in no acute distress. Head/Face: Normocephalic, atraumatic. Eyes: Extra-ocular motions intact. Periorbital areas with no swelling, redness, or edema. ENT: Mucous membranes moist. Cardiovascular: Regular rate and rhythm with a normal S1 and S2. Respiratory: Lungs have equal breath sounds bilaterally, clear to auscultation and percussion. No rales, rhonchi or wheezes noted. No increased work of breathing, no retractions or nasal flaring. Abdomen/GI: Soft, non-tender, no distension. Skin: Warm, dry with normal turgor. Normal color with no rashes, no lesions, and no evidence of cellulitis. MS/ Extremity: Pulses equal, no cyanosis. Neurovascular intact. Full, normal range of motion. Neuro: Awake and alert, GCS 15, oriented to person, place, time, and situation. Motor strength 5/5 in all extremities. Sensory grossly intact. 17:48 Neuro: Gait: is steady, appropriate for age, Vital Signs: 17:12 BP 140 / 80; Pulse 88; Resp 17; Temp 97.1; Pulse Ox 95% ; Weight 103.42 kg; Height 5 ll1 ft. 10 in. ; Pain 2/10; 19:41 BP 130 / 84; Pulse 88; Resp 17; Temp 98; Pulse Ox 97% ; Pain 0/10; rg5 21:05 BP 136 / 87; Pulse 87; Resp 18; Temp 98.2; Pulse Ox 98% ; Pain 0/10; jh8 17:12 Body Mass Index 32.71 (103.42 kg, 177.8 cm) ll1 17:12 Pain Scale: Adult ll1 19:41 Pain Scale: Adult rg5 21:05 Pain Scale: Adult jh8 Yane Coma Score: 19:41 Eye Response: spontaneous(4). Motor Response: obeys commands(6). Verbal Response: rg5 oriented(5). Total: 15. Procedures: 20:13 moraima maneuver performed, patient reports improvement in symptoms. sb4 MDM: 17:08 Patient medically screened. sb4 20:13 Data reviewed: vital signs, nurses notes, lab test result(s), EKG, radiologic studies, sb4 and as a result, I will discharge patient. Consideration of Admission/Observation Escalation of care including admission/observation considered. Counseling: I had a detailed discussion with the patient and/or guardian regarding the historical points, exam findings, and any diagnostic results supporting the discharge/admit diagnosis, lab results, radiology results, the need for outpatient follow up, an ENT specialist, to return to the emergency department if symptoms worsen or persist or if there are any questions or concerns that arise at home. 04/10 17:36 Order name: Basic Metabolic Panel; Complete Time: 19:09 sb4 04/10 17:36 Order name: CBC with Diff; Complete Time: 18:53 sb4 04/10 17:36 Order name: Hepatic Function; Complete Time: 19:09 sb4 04/10 17:36 Order name: Magnesium; Complete Time: 19:09 sb4 04/10 17:36 Order name: Protime (+inr); Complete Time: 18:54 sb4 04/10 17:36 Order name: Ptt, Activated; Complete Time: 18:54 sb4 04/10 17:36 Order name: Troponin High Sensitivity; Complete Time: 19:09 sb4 04/10 17:36 Order name: CT Head Brain wo Cont; Complete Time: 18:19 sb4 04/10 17:36 Order name: EKG; Complete Time: 17:37 sb4 04/10 17:36 Order name: Cardiac monitoring; Complete Time: 18:34 sb4 04/10 17:36 Order name: EKG - Nurse/Tech; Complete Time: 19:40 sb4 04/10 17:36 Order name: IV Saline Lock; Complete Time: 18:35 sb4 04/10 17:36 Order name: Labs collected and sent; Complete Time: 18:35 sb4 04/10 17:36 Order name: O2 Per Protocol; Complete Time: 17:37 sb4 04/10 17:36 Order name: O2 Sat Monitoring; Complete Time: 17:37 sb4 EC:20 Rate is 73 beats/min. Rhythm is regular, Normal Sinus Rhythm. IN interval is normal at sb4 156 msec. QRS interval is normal at 76 msec. QT interval is normal at 420 msec. No Q waves. T waves are Normal. No ST changes noted. Clinical impression: No evidence of ischemia. Interpreted by me. Reviewed by me. Administered Medications: 20:32 Drug: Meclizine PO 25 mg PO once Route: PO; [facility] 21:07 Follow up: Response: No adverse reaction [facility] Disposition: 21:16 I was immediately available on-site in the Emergency Department for consultation in the ms3 care of the patient. Disposition Summary: 04/10/24 20:43 Discharge Ordered Notes: Location: Home sb4 Problem: an ongoing problem sb4 Symptoms: have improved sb4 Condition: Stable sb4 Diagnosis - Dizziness and giddiness sb4 Followup: sb4 - With: Li Browning MD - When: As needed - Reason: Recheck today's complaints, Re-evaluation by your physician Discharge Instructions: - Discharge Summary Sheet sb4 - Benign Positional Vertigo sb4 - Dizziness, [id number] sb4 Forms: - Patient Portal Instructions sb4 - Leadership Thank You Letter sb4 Prescriptions: - Meclizine 25 mg Oral Tablet - take 1 tablet ORAL route every 8 hours As needed; 30 tablet; Refills: 0, sb4 Product Selection Permitted Signatures: Dispatcher [employer] EDMS Raza Perez, RN RN ll1 Eliseo Hinson, DO ms3 Mimi Fong PALetty PALetty sb4 Eliecer Browning, MAGO RN jh8 Corrections: (The following items were deleted from the chart) 17:12 17:11 PMHx: None; ll1 ll1 17:37 17:37 BASIC METABOLIC PANEL+C.LAB.BRZ ordered. EDMS EDMS 17:37 17:37 CBC+H.LAB.BRZ ordered. EDMS EDMS 17:37 17:37 HEPATIC FUNCTION+C.LAB.BRZ ordered. EDMS EDMS 17:37 17:37 MAGNESIUM+C.LAB.BRZ ordered. EDMS EDMS 17:37 17:37 PROTIME (+INR)+COAG.LAB.BRZ ordered. EDMS EDMS 17:37 17:37 PTT, ACTIVATED+COAG.LAB.BRZ ordered. EDMS EDMS 17:37 17:37 Troponin High Sensitivity+C.LAB.BRZ ordered. EDMS EDMS 17:37 17:37 URINE DRUG SCREEN+UC.LAB.BRZ ordered. EDMS EDMS 17:37 17:37 Urinalysis+U.LAB.BRZ ordered. EDMS EDMS
--- NOTE | 2024-04-10 20:44 | ER ---
Nurse's Notes [facility] Name: Neelam Abdullahi Age: 59 yrs Sex: Female : 1965 Arrival Date: 04/10/2024 Time: 16:54 Bed 7 Private MD: Diagnosis: Dizziness and giddiness Presentation: 04/10 17:12 Chief complaint: Patient states: Dizzy and nausea for 2 weeks. Coronavirus screen: ll1 Client denies travel out of the [place] in the last 14 days. At this time, the client does not indicate any symptoms associated with coronavirus-19. Ebola Screen: Patient denies travel to an Ebola-affected area in the 21 days before illness onset. Initial Sepsis Screen: Does the patient meet any 2 criteria? No. Patient's initial sepsis screen is negative. Does the patient have a suspected source of infection? No. Patient's initial sepsis screen is negative. Risk Assessment: Do you want to hurt yourself or someone else? Patient reports no desire to harm self or others. Onset of symptoms was March 26, 2024. 17:12 Method Of Arrival: Ambulatory 1 17:12 Acuity: SHERRI 3 ll1 Historical: - Allergies: 17:11 No Known Allergies; ll1 - PMHx: 17:11 P.E.; ll1 - PSHx: 17:11 knee replacement; ll1 - Immunization history:: Adult Immunizations up to date. - Infectious Disease History:: Denies. - Social history:: Smoking status: Patient denies any tobacco usage or history of. Screenin:15 Abuse screen: Denies threats or abuse. Denies injuries from another. Nutritional kc6 screening: No deficits noted. Tuberculosis screening: No symptoms or risk factors identified. 17:15 [facility] ED Fall Risk Assessment (Adult) History of falling in the last 3 months, kc6 including since admission No falls in past 3 months (0 pts) Confusion or Disorientation No (0 pts) Intoxicated or Sedated No (0 pts) Impaired Gait No (0 pts) Mobility Assist Device Used No (0 pt) Altered Elimination No (0 pt) Score/Fall Risk Level 0 - 2 = Low Risk. Assessment: 17:15 General: Appears in no apparent distress. comfortable, well groomed, well developed, kc6 Behavior is calm, cooperative, appropriate for age. Pain: Denies pain. Neuro: Level of Consciousness is awake, alert, obeys commands, Oriented to person, place, time, situation, Appropriate for age Reports dizziness. Cardiovascular: Capillary refill < 3 seconds. Respiratory: Airway is patent Trachea midline Respiratory effort is even, unlabored, Respiratory pattern is regular, symmetrical. GI: Abdomen is flat, non-distended, Reports nausea, Patient currently denies abdominal pain, diarrhea, vomiting. : No signs and/or symptoms were reported regarding the genitourinary system. EENT: No signs and/or symptoms were reported regarding the EENT system. Derm: No signs and/or symptoms reported regarding the dermatologic system. Skin is intact, is healthy with good turgor, Skin is normal. Musculoskeletal: No signs and/or symptoms reported regarding the musculoskeletal system. Circulation, motion, and sensation intact. Capillary refill < 3 seconds, Range of motion: intact in all extremities. 18:15 Reassessment: Patient appears in no apparent distress at this time. No changes from kc6 previously documented assessment. Patient and/or family updated on plan of care and expected duration. Pain level reassessed. Patient is alert, oriented x 3, equal unlabored respirations, skin warm/dry/pink. 21:04 General: Appears in no apparent distress. comfortable. Pain: Denies pain. [facility] Vital Signs: 17:12 BP 140 / 80; Pulse 88; Resp 17; Temp 97.1; Pulse Ox 95% ; Weight 103.42 kg; Height 5 ll1 ft. 10 in. ; Pain 2/10; 19:41 BP 130 / 84; Pulse 88; Resp 17; Temp 98; Pulse Ox 97% ; Pain 0/10; rg5 21:05 BP 136 / 87; Pulse 87; Resp 18; Temp 98.2; Pulse Ox 98% ; Pain 0/10; jh8 17:12 Body Mass Index 32.71 (103.42 kg, 177.8 cm) ll1 17:12 Pain Scale: Adult ll1 19:41 Pain Scale: Adult rg5 21:05 Pain Scale: Adult 8 Vitals: 19:41 Cardiac Rhythm Assessment Regular. rg5 Yane Coma Score: 19:41 Eye Response: spontaneous(4). Motor Response: obeys commands(6). Verbal Response: rg5 oriented(5). Total: 15. ED Course: 17:01 Patient arrived in ED. im 17:08 Mimi Fong PA-C is PHCP. sb4 17:08 Eliseo Hinson DO is Attending Physician. sb4 17:15 Arm band placed on. kc6 17:15 Patient has correct armband on for positive identification. Bed in low position. Call kc6 light in reach. Side rails up X 1. Pulse ox on. NIBP on. Pillow given. 17:20 Triage completed. ll1 17:29 Jailene Walls, RN is Primary Nurse. kc6 18:12 CT Head Brain wo Cont In Process Unspecified. EDMS 18:34 Basic Metabolic Panel Sent. tl4 18:34 CBC with Diff Sent. tl4 18:34 Hepatic Function Sent. tl4 18:34 Magnesium Sent. tl4 18:34 Protime (+inr) Sent. tl4 18:34 Ptt, Activated Sent. tl4 18:34 Troponin High Sensitivity Sent. tl4 19:00 Report given to MAGO James. kc6 19:40 Chemo Barnett RN is Primary Nurse. rg5 19:41 No provider procedures requiring assistance completed. rg5 20:43 Li Browning MD is Referral Physician. 4 21:06 Patient did not have IV access during this emergency room visit. [facility] 21:06 Provided Education on: discharge instruction. [facility] Administered Medications: 20:32 Drug: Meclizine PO 25 mg PO once Route: PO; [facility] 21:07 Follow up: Response: No adverse reaction [facility] Medication: 21:07 VIS not applicable for this client. [facility] Outcome: 20:43 Discharge ordered by . 4 21:05 Discharged to home ambulatory, 8 21:05 Condition: good 21:05 Discharge instructions given to patient, Instructed on discharge instructions, follow up and referral plans. medication usage, Demonstrated understanding of instructions, follow-up care, medications, Prescriptions given X 1, 21:08 Patient left the ED. [facility] Signatures: Dispatcher [employer] EDMS Raza Perez RN RN ll1 Jailene Walls RN RN [email or web address] Mimi Fong PA-C PA-C [facility] Ellen Harris im LogdaAdrian mejia RN RN [facility] Eliecer Browning RN RN [facility] Chemo Barnett MAGO RN rg5 Corrections: (The following items were deleted from the chart) 17:12 17:11 PMHx: None; ll1 ll1
[2024-04-10 21:36] VITALS: BP 136/87; TEMP 98.2; O2SAT 98
--- NOTE | 2024-04-11 14:33 | EKG ---
Test Date: 2024-04-10 Test Time: 19:14:11 Development Disability Specialist: MARIANNA MEASUREMENT RESULTS: Intervals: Rate: 73 WA: 156 QRSD: 76 QT: 420 QTc: 462 Wesley: P: 46 WA: 156 QRS: 20 T: 64 INTERPRETIVE STATEMENTS: Normal sinus rhythm Low voltage QRS Cannot rule out Anterior infarct, age undetermined Abnormal ECG Compared to ECG 12/29/2023 23:42:30 Myocardial infarct finding now present Prolonged QT interval no longer present Electronically Signed On 04-11-24 14:32:12 CDT by Gaurav Jolly
== END 2024-04-10 21:08 | disposition home or self-care (01) ==
LOC: ER 16:54
DX: R42 Dizziness and giddiness (principal); R11.0 Nausea; Z86.711 Personal history of pulmonary embolism; Z79.01 Long term (current) use of anticoagulants
CPT/HCPCS: 93005; 85025; 80048; 36415; 83735; 85610; 80076; 85730; 84484; 70450; 99284; J8597

== ENCOUNTER 2025-01-26 08:33 | Emergency (ER) | payer OTHER ==
--- OUTSIDE RECORDS SUMMARY | 2025-01-26 08:36 | XMS REPORT | Continuity of Care Document ---
Author Name Unknown Address [address] [facility] [address] [place] [address] [facility] [place] Address [address] [facility] [address] [place] [address] Care Team Providers Care Talent Acquisition Program Manager Name Role Phone Stefania REDDY, Kevin Briggs Primary Care Physician DR NICHOL MELCHOR Attending Clinician Unavailable LAXMI ESPINO Attending Clinician Unavaila CAMILO Napoles Attending Clinician Unavailable MD MICHEL Attending Clinician Unavailab SARA Romero Attending Clinician Unavailable [id number] Attending Clinician Unavailable ONLY, HEM/ONC NURSE Attending Clinician Unava ilable LAB90 Attending Clinician Unavailable DANNI GILLETTE Attending Clinician Unavailable SHANNAN CARPENTER Attending Clinician Unavailab ISAURA Paz Attending Clinician Unavailable ELY MCLAUGHLIN Attending Clinician Unavailable JOSE MANUEL MADDEN Attending Clinician Unavailable DEANA GIRON [facility] Attending Kevin England MD Attending Clinician + [phone] KEVIN BOGGS Attending Clinician DR NICHOL Mccray Admitting Clinician Unavailable Payers Payer Name Policy Type Policy Number Effective Date Expirati on Date Source [facility] DONAVAN [employer]ILLARREAL [employer] 9 [id number] 2024 00:00:00 Problems Condition Name Condition Details Condition Category Status Onset Date Resolution Date Last Treatment Date Treating Clinician Comments Source Factor V Luke ([facility]) Factor V Leiden ([facility]) Disease Active 12-22 00:00: 00 Deana Penny - Externa l Leg DVT (deep venous thromboemb olism), chronic, right (multi HCC) Leg DVT (deep venous thromboemb olism), chronic, right (multi HCC) Disease Active 12-22 00:00: 00 Deana Pinedaold - Externa l 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 Active 2023-10 0-21 00:00: 00 Deana Seandreaold - Externa l Prediabete s Prediabete s Disease Active 4 00:00: 00 Deana Pinedaold - Externa l History of DVT (deep vein thrombosis ) History of DVT (deep vein thrombosis ) Disease Active 01-05 00:00: 00 Deana Pinedaold - Externa l History of pulmonary embolus (PE) History of pulmonary embolus (PE) Disease Active 01-05 00:00: 00 Deana Pinedaold - Externa l DVT (deep venous thrombosis ) (multi HCC) DVT (deep venous thrombosis ) (multi HCC) Disease Active 01-05 00:00: 00 Deana Seandreaold - Externa l Pulmonary embolus (multi HCC) Pulmonary embolus (multi HCC) Disease Active 01-05 00:00: 00 Deana Pinedaold - Externa l Hypercoagu lable state ([facility]-HCC) Hypercoagu lable state ([facility]-HCC) Disease Active 01-05 00:00: 00 Deana Pinedaold - Externa l Obesity Obesity Disease Active 01-05 00:00: 00 Deana Pinedaold - Externa l Hospital discharge follow-up Hospital discharge follow-up Disease Active 01-05 00:00: 00 Deana Pinedaold - Externa l No known active problems No known active problems Disease [facility] Allergies, Adverse Reactions, Alerts Allergy Name Allergy Type Status Severity Reaction(s) Onset Date Inactive Date Treating Clinician Comments Source NO KNOWN ALLERGIE S Drug Class Active [facility] Social History Social Habit Start Date Stop Date Quantity Comments Source Sexual orientation [place] Penny - External ASSERTION Not Deana Seybold - External History of Occupation Deana Penny - External History SDOH Alcohol Frequency [facility] History SDOH Alcohol Std Drinks [facility] History SDOH Alcohol Binge [facility] Exposure to SARS-CoV-2 (event) Not sure [facility] Alcoholic beverage intake 2024-12-22 00:00:00 2024-12-22 00:00:00 Current drinker of alcohol (finding) Deana [...] Social function 2024-01-04 00:00:00 2024-01-04 00:00:00 Deana Penny - External Sex 2022-10-08 16:02:06 2022-10-08 16:02:06 Female (finding) Deana Penny - External Sex [birth year] at 1965 00:00:00 1965 00:00:00 Deana Penny - External Smoking Status Start Date Stop Date Source Never smoked tobacco Deana Penny - External Medications Ordered Medication Name Filled Medication Name Start Date Stop Date Current Medication? Ordering Clinician Indication Dosage Frequency Signature (SIG) Comments Components Source Rivaroxaban (Xarelto) 10 MG oral Tablet 3-14 00:00: 00 Yes 10mg QD Take 1 tablet (10 mg total) by mouth daily. Deana Penny - Externa l Apixaban (Eliquis) 5 MG oral Tablet 1-13 00:00: 00 12-22 00:00 :00 No [id number] 5mg Q.5D Take 1 tablet (5 mg total) by mouth 2 times daily. Deana kim Escitalopra m Oxalate 10 MG oral Tablet 2023-10 00:00: 00 Yes [id number] 10mg QD Take 1 tablet (10 mg total) by mouth daily. Deana kim Meclizine HCl 25 MG oral Tablet 04-07 00:00: 00 07-31 00:00 :00 No [id number] 25mg Q.[id number] 3D Take 1 tablet (25 mg total) by mouth 3 times daily as needed. Deana kim Ondansetron (ZOFRAN) 4 MG oral TABLET DISPERSIBLE 04-07 00:00: 00 07-31 00:00 :00 No [id number] 4mg Q.[id number] 3D Take 1 tablet (4 mg total) by mouth every 8 hours as needed for nausea. Deana kim Doxycycline Hyclate 100 MG oral Tablet 04-07 00:00: 00 07-31 00:00 :00 No [id number] 100mg Q.5D Take 1 tablet (100 mg total) by mouth 2 times daily. Deana kim Blood Glucose Monitoring Suppl (Blood Glucose Monitor System) w/Device does not apply Kit 01-24 00:00: 00 07-31 00:00 :00 No [id number] Check BS daily. Deana kim Glucose Blood in vitro Strip 01-24 00:00: 00 07-31 00:00 :00 No [id number] 1{each} QD 1 each by other route daily Check BS daily. Deana kim Lancets 33G does not apply Misc 01-24 00:00: 00 07-31 00:00 :00 No [id number] 1U QD 1 unit by does not apply route daily Check BS daily. Deana kim Cyclobenzap rine HCl 10 MG oral Tablet 01-18 00:00: 00 04-07 00:00 :00 No [id number] 5mg QD Take 0.5 tablets (5 mg total) by mouth nightly as needed for muscle spasms. Deana kim methylPREDN ISolone (Medrol) 4 MG oral Tablet Therapy Pack 08 00:00: 00 02-10 00:00 :00 No 1{ade} Take 1 ade by mouth See Admin Instructio ns Use as directed.. Deana kim Cyclobenzap rine HCl 10 MG oral Tablet 4-08 00:00: 00 01-18 00:00 :00 No 10mg QD Take 1 tablet (10 mg total) by mouth nightly as needed for muscle spasms. Deana kim Apixaban (Eliquis) 5 MG oral Tablet 3-28 11:47: 02 01-05 00:00 :00 No 5mg Take 1 tablet (5 mg total) by mouth 2 times daily. Deana kim Apixaban (Eliquis) 5 MG oral Tablet 28 00:00: 00 10-23 00:00 :00 No [id number] 5mg Q.5D Take 1 tablet (5 mg total) by mouth 2 times daily. Deana kim dextroamphe tamine-amph etamine (ADDERALL) 30 mg tablet 7-27 00:00: 00 Yes [id number] 30mg Take 1 tablet by mouth in the morning and 1 tablet in the evening. [facility] dextroamphe tamine-amph etamine (ADDERALL) 30 mg tablet 6-23 00:00: 00 Yes [id number] 30mg Take 1 tablet by mouth 2 (two) times daily. [facility] dextroamphe tamine-amph etamine (ADDERALL) 30 mg tablet 6-21 00:00: 00 Yes [id number] 30mg Take 1 tablet by mouth 2 (two) times daily. [facility] dextroamphe tamine-amph etamine (ADDERALL) 30 mg tablet 5-11 00:00: 00 Yes [id number] 30mg Take 1 tablet by mouth 2 (two) times daily. [facility] dextroamphe tamine-amph etamine (ADDERALL) 30 mg tablet 4-11 00:00: 00 Yes [id number] 30mg Take 1 tablet by mouth 2 (two) times daily. [facility] traZODone 50 mg tablet 3-03 00:00: 00 Yes [id number] 50mg Take 1 tablet by mouth at bedtime. [facility] dextroamphe tamine-amph etamine (ADDERALL) 30 mg tablet 3-03 00:00: 00 01-19 00:00 :00 No [id number] 30mg Take 1 tablet by mouth 2 (two) times daily. [facility] dextroamphe tamine-amph etamine (ADDERALL) 30 mg tablet 2- 00:00: 00 Yes [id number] 30mg Take 1 tablet by mouth 2 (two) times daily. [facility] dextroamphe tamine-amph etamine (ADDERALL) 30 mg tablet 2020-10 2-23 00:00: 00 11-17 00:00 :00 No [id number] 30mg Take 1 tablet by mouth 2 (two) times daily. [facility] dextroamphe tamine-amph etamine (ADDERALL) 30 mg tablet 2020-10 1-16 00:00: 00 Yes [id number] 30mg Take 1 tablet by mouth 2 (two) times daily. [facility] dextroamphe tamine-amph etamine (ADDERALL) 30 mg tablet 2020-10 1-12 00:00: 00 Yes [id number] 30mg Take 1 tablet by mouth 2 (two) times daily. [facility] busPIRone 5 mg tablet 2020-10 0-14 00:00: 00 Yes [id number] 5mg Take 1 tablet by mouth 2 (two) times daily. [facility] dextroamphe tamine-amph etamine (ADDERALL) 20 mg tablet 2020-10 0-14 00:00: 00 08-22 00:00 :00 No [id number] 20mg Take 1 tablet by mouth daily. [facility] Vital Signs Vital Name Observation Time Observation Value Comments S kimberlyn Systolic blood pressure 2024-12-22 15:30:00 136 mm[Hg] Deana Seybold - External Diastolic blood pressure 2024-12-22 15:30:00 83 mm[Hg] Deana Seybold - External Heart rate 2024-12-22 15:30:00 85 /min Deana Seybold - External Body temperature 2024-12-22 15:30:00 36.5 Roopa Deana Seybold - External Respiratory rate 2024-12-22 15:30:00 18 /min Deana Seybold - External Body height 2024-12-22 15:30:00 177.8 cm Deana Seybold - External Body weight 2024-12-22 15:30:00 114.125 kg Deana Seybold - External BMI 2024-12-22 15:30:00 36.10 kg/m2 Deana Seybold - External Oxygen saturation in Arterial blood by Pulse oximetry 2024-12-22 15:30:00 100 /min Deana Seybold - External Systolic blood pressure 2024-10-23 16:42:00 132 mm[Hg] Deana Seybold - External Diastolic blood pressure 2024-10-23 16:42:00 85 mm[Hg] Deana Seybold - External Heart rate 2024-10-23 16:42:00 75 /min Deana Seybold - External Body temperature 2024-10-23 16:42:00 36.5 Roopa Deana Seybold - External Respiratory rate 2024-10-23 16:42:00 17 /min Deana Seybold - External Body height 2024-10-23 16:42:00 177.8 cm Deana Seybold - External Body weight 2024-10-23 16:42:00 108.863 kg Deana Seybold - External BMI 2024-10-23 16:42:00 34.44 kg/m2 Deana Seybold - External Oxygen saturation in Arterial blood by Pulse oximetry 2024-10-23 16:42:00 100 /min Deana Seybold - External Systolic blood pressure 2024-07-31 19:01:00 120 mm[Hg] Deana Seybold - External Diastolic blood pressure 2024-07-31 19:01:00 86 mm[Hg] Deana Seybold - External Heart rate 2024-07-31 19:01:00 91 /min Deana Seybold - External Body temperature 2024-07-31 19:01:00 36.5 Roopa Deana Seybold - External Respiratory rate 2024-07-31 19:01:00 15 /min Deana Seybold - External Body height 2024-07-31 19:01:00 177.8 cm Deana Seybold - External Body weight 2024-07-31 19:01:00 104.327 kg pt didnt want to get on the scale Deana Seybold - External BMI 2024-07-31 19:01:00 33.00 kg/m2 Deana Hernandezybold - External Oxygen saturation in Arterial blood by Pulse oximetry 2024-07-31 19:01:00 97 /min Deana Seybold - External Systolic blood pressure 2024-04-07 21:21:00 130 mm[Hg] Deana Seybold - External Diastolic blood pressure 2024-04-07 21:21:00 78 mm[Hg] Deana Seybold - External Heart rate 2024-04-07 21:21:00 105 /min Deana Seybold - External Body temperature 2024-04-07 21:21:00 37.11 Roopa Deana Seybold - External Respiratory rate 2024-04-07 21:21:00 18 /min Deana Seybold - External Body height 2024-04-07 21:21:00 177.8 cm Deana Seybold - External Body weight 2024-04-07 21:21:00 103.874 kg Deana Seybold - External BMI 2024-04-07 21:21:00 32.86 kg/m2 Deana Seybold - External Systolic blood pressure 2024-02-11 18:57:00 137 mm[Hg] Deana Seybold - External Diastolic blood pressure 2024-02-11 18:57:00 89 mm[Hg] Deana Seybold - External Heart rate 2024-02-11 18:57:00 85 /min Deana Seybold - External Body temperature 2024-02-11 18:57:00 36.33 Roopa Deana Seybold - External Respiratory rate 2024-02-11 18:57:00 16 /min Deana Seybold - External Body height 2024-02-11 18:57:00 177.8 cm Deana Seybold - External Body weight 2024-02-11 18:57:00 107.956 kg Deana Seybold - External BMI 2024-02-11 18:57:00 34.15 kg/m2 Deana Seybold - External Oxygen saturation in Arterial blood by Pulse oximetry 2024-02-11 18:57:00 98 /min Deana Seybold - External Systolic blood pressure 2024-01-19 21:30:00 130 mm[Hg] Deana Seybold - External Diastolic blood pressure 2024-01-19 21:30:00 86 mm[Hg] Deana Seybold - External Heart rate 2024-01-19 21:30:00 108 /min Deana Seybold - External Body temperature 2024-01-19 21:30:00 37.22 Roopa Deana Seybold - External Respiratory rate 2024-01-19 21:30:00 16 /min Deana Seybold - External Body height 2024-01-19 21:30:00 177.8 cm Deana Seybold - External Body weight 2024-01-19 21:30:00 107.502 kg Deana Seybold - External BMI 2024-01-19 21:30:00 34.01 kg/m2 Deana Seybold - External Oxygen saturation in Arterial blood by Pulse oximetry 2024-01-19 21:30:00 99 /min Deana Seybold - External Body height 2024-01-17 19:09:00 177.8 cm Deana Seybold - External Body weight 2024-01-17 19:09:00 107.502 kg Deana Seybold - External BMI 2024-01-17 19:09:00 34.01 kg/m2 Deana Seybold - External Systolic blood pressure 2024-01-06 16:46:00 135 mm[Hg] Deana Seybold - External Diastolic blood pressure 2024-01-06 16:46:00 85 mm[Hg] Deana Seybold - External Heart rate 2024-01-06 16:18:00 89 /min Deana Hernandezybold - External Body temperature 2024-01-06 16:18:00 36.78 Roopa Deana Hernandezybold - External Body height 2024-01-06 16:18:00 177.8 cm Deana Hernandezybold - External Body weight 2024-01-06 16:18:00 107.502 kg Deana Hernandezybold - External BMI 2024-01-06 16:18:00 34.01 kg/m2 Deana Hernandezybold - External Systolic blood pressure 2021-07-24 14:25:00 137 mm[Hg] [facility] Diastolic blood pressure 2021-07-24 14:25:00 83 mm[Hg] [facility] Heart rate 2021-07-24 14:25:00 78 /min [facility] Body height 2021-07-24 14:25:00 177.8 cm [facility] Body weight 2021-07-24 14:25:00 111.585 kg [facility] BMI 2021-07-24 14:25:00 35.30 kg/m2 [facility] Encounters Start Date/Time End Date/Time Encounter Type Admission Type Attending [facility] Care Facility Care Department Encounter ID Source 2017-10-08 07:00:00 Inpatient NICHOL CAMACHO [facility] [id number] [facility] 2025-06-21 14:00:00 2025-06-21 14:00:00 Outpatient LAXMI ESPINO [id number] Deana Penny 2025-01-16 00:00:00 2025-01-16 00:00:00 Outpatient CAMILO BEAL [id number] Deana Penny 2025-01-15 00:00:00 2025-01-15 00:00:00 Outpatient MD DEANA SELELRS [id number] Deana Penny 2024-12-25 00:00:00 2024-12-25 00:00:00 Outpatient LAXMI ESPINO [id number] Deana Penny 2024-12-22 10:30:00 2024-12-22 10:30:00 Outpatient LAXMI ESPINO DEANA LONG [id number] [facility] 2024-12-22 00:00:00 2024-12-22 00:00:00 Outpatient LAXMI ESPINO DEANA LONG [id number] [facility] 2024-12-22 00:00:00 2024-12-22 00:00:00 Outpatient ALEXANDRA SARA DEANA LONG [id number] Deana Seybold 2024-12-21 17:05:00 2024-12-21 17:05:00 Outpatient DEANA LONG [id number] [facility] 2024-12-21 00:00:00 2024-12-21 00:00:00 Outpatient LAXMI ESPINO DEANA LONG [id number] [facility] 2024-12-13 12:30:00 2024-12-13 12:30:00 Outpatient DEANA LONG [id number] [facility] [place] 2024-12-13 00:00:00 2024-12-13 00:00:00 Outpatient LAXMI ESPINO DEANA LONG [id number] [facility] [place] 2024-12-08 08:15:00 2024-12-08 08:15:00 Outpatient DEANA LONG [id number] Deana Seybold 2024-10-23 11:20:00 2024-10-23 11:20:00 Outpatient SALLY LONG [id number] Deana Seybold 2024-10-23 10:30:00 2024-10-23 10:30:00 Outpatient LAXMI ESPINO DEANA LONG [id number] Deana Seybold 2024-10-10 00:00:00 2024-10-10 00:00:00 Outpatient CAMILO BEAL [id number] Deana Seybold 2024-10-06 14:30:00 2024-10-06 14:30:00 Outpatient DEANA LONG [id number] Deana Seybold 2024-09-22 14:30:00 2024-09-22 14:30:00 Outpatient DEANA LONG [id number] Deana Seybold 2024-09-18 10:15:00 2024-09-18 10:15:00 Outpatient PRECAMILO ROA [id number] Deana [facility] 2024-08-28 00:00:00 2024-08-28 00:00:00 Outpatient KAITY WAGN [id number] Deana [facility] 2024-08-14 00:00:00 2024-08-14 00:00:00 Outpatient MD DEANA SELLERS [id number] Deana [facility] 2024-08-03 00:00:00 2024-08-03 00:00:00 Outpatient MD DEANA SELLERS [id number] Deana [facility] 2024-07-31 14:45:00 2024-07-31 14:45:00 Outpatient ALHAJI LONG [id number] Deana [facility] 2024-07-31 14:15:00 2024-07-31 14:15:00 Outpatient CAMILO BEAL [id number] Deana [facility] 2024-07-31 00:00:00 2024-07-31 00:00:00 Outpatient MD DEANA SELLERS [id number] Deana [facility] 2024-07-28 13:00:00 2024-07-28 13:00:00 Outpatient DANNI GILLETTE [id number] Deana [facility] 2024-07-25 00:00:00 2024-07-25 00:00:00 Outpatient MD DEANA SELLERS [id number] Deana [facility] 2024-06-20 16:00:00 2024-06-20 16:00:00 Outpatient SHANNAN CARPENTER [id number] Deana Penny 2024-05-26 14:15:00 2024-05-26 14:15:00 Outpatient CAMILO BEAL [id number] [facility] 2024-04-25 00:00:00 2024-04-25 00:00:00 Outpatient MD DEANA SELLERS [id number] [facility] 2024-04-19 09:45:00 2024-04-19 09:45:00 Outpatient PREZACAMILO Crain DEANA LONG [id number] Deana Seybedu 2024-04-14 11:45:00 2024-04-14 11:45:00 Outpatient PREZACAMILO Crain DEANA LONG [id number] Deana Hernande[facility] 2024-04-10 00:00:00 2024-04-10 00:00:00 Outpatient HUNDMode, DANNI DEANA LONG [id number] Deana Seybedu 2024-04-07 16:30:00 2024-04-07 16:30:00 Outpatient HUNDDANNI Kim DEANA LONG [id number] Deana Seybedu 2024-02-29 00:00:00 2024-02-29 00:00:00 Outpatient ONLYKAITY [id number] Deana Hernandezybedu 2024-02-11 14:30:00 2024-02-11 14:30:00 Outpatient DEANA LONG [id number] Deana Seybedu 2024-02-11 14:00:00 2024-02-11 14:00:00 Outpatient ISAURA WONG [id number] Deana Seybedu 2024-02-11 00:00:00 2024-02-11 00:00:00 Outpatient MD DEANA SELLERS [id number] Deana Seybedu 2024-02-09 15:30:00 2024-02-09 15:30:00 Outpatient ELY MCLAUGHLIN [id number] Deana Seybold 2024-02-07 13:30:00 2024-02-07 13:30:00 Outpatient ISAURA WONG [id number] Deana Seybold 2024-01-25 00:00:00 2024-01-25 00:00:00 Outpatient PREZABRUCE CrainAND DEANA LONG [id number] Deana Seybold 2024 00:00:00 2024 00:00:00 Outpatient PREZACAMILO Crain [id number] Deana Seybold 2024-01-19 16:30:2024-01-19 16:30:00 Outpatient PREZAS, CAMILO LONG DEANA [id number] Deana [facility] 2024-01-19 00:00:00 2024-01-19 00:00:00 Outpatient PREZAS, CAMILO LONG DEANA [id number] Deana [facility] 2024-01-19 00:00:00 2024-01-19 00:00:00 Outpatient PREZAS, CAMILO DEANA DEANA [id number] Deana [facility] 2024-01-17 14:35:00 2024-01-17 14:35:00 Outpatient DEANA DEANA [id number] Deana [facility] 2024-01-17 14:00:00 2024-01-17 14:00:00 Outpatient MARYANNE, JOSE MANUEL DEANA LONG [id number] [facility] 2024-01-17 10:30:00 2024-01-17 10:30:00 Outpatient LAB90 DEANA LONG [id number] [facility] 2024-01-17 00:00:00 2024-01-17 00:00:00 Outpatient MARYANNE, JOSE MANUEL DEANA LONG [id number] [facility] [place] 2024-01-17 00:00:00 2024-01-17 00:00:00 Outpatient DEANA LONG [id number] [facility] [place] 2024-01-17 00:00:00 2024-01-17 00:00:00 Outpatient GROUP, DEANA LONG [id number] Deana Seybold 2024-01-14 00:00:00 2024-01-14 00:00:00 Outpatient PREZAS, CAMILO DEANA LONG [id number] Deana Seybold 2024-01-13 00:00:00 2024-01-13 00:00:00 Outpatient PREZAS, CAMILO DEANA LONG [id number] Deana Seybold 2024-01-11 15:00:00 2024-01-11 15:00:00 Outpatient DEANA LONG [id number] Deana Seybold 2024-01-10 00:00:00 2024-01-10 00:00:00 Outpatient PREZAS, CAMILO DEANA LONG [id number] Deana Seybold 2024-01-10 00:00:00 2024-01-10 00:00:00 Outpatient PREZASCAMILO DEANA [id number] [facility] 2024-01-07 00:00:00 2024-01-07 00:00:00 Outpatient PREZAS, CAMILO LONG DEANA [id number] [facility] 2024-01-06 11:30:00 2024-01-06 11:30:00 Outpatient PREZAS, CAMILO LONG [id number] [facility] 2022-05-06 00:00:00 2022-05-06 00:00:00 Refill Stefania [facility] [id number] [facility] 2022-04-02 00:00:00 2022-04-02 00:00:00 Refill Stefania [facility] [id number] [id number] [id number] [facility] 2022-03-30 00:00:00 2022-03-30 00:00:00 Refill Stefania [facility] [id number] [id number] [id number] [facility] 2022-02-18 00:00:00 2022-02-18 00:00:00 Refill Stefania [facility] [id number] [facility] 2022-01-19 00:00:00 2022-01-19 00:00:00 Refill Veselenedelia, Kevin [facility] [id number] [id number] [facility] 2021-12-11 10:00:00 2021-12-11 10:00:00 Outpatient Karmen BOGGS KEVIN [facility] [id number] [facility] 2021-11-24 09:00:00 2021-11-24 09:00:00 Outpatient Karmen BOGGS KEVIN [facility] [id number] [facility] 2021-11-17 00:00:00 2021-11-17 00:00:00 Kevin Hinson [facility] [id number] [id number] [id number] [facility] 2021-08-26 00:00:00 2021-08-26 00:00:00 Telephone Kevin Boggs [facility] [id number] [id number] [id number] [id number] [facility] 2021-08-21 00:00:00 2021-08-21 00:00:00 Telephone Kevin Boggs [facility] [id number] [id number] [id number] [id number] [facility] 2021-07-24 09:11:36 2021-07-24 09:41:36 [facility] [id number] [id number] [id number] [id number] [facility] 2021-07-24 09:30:00 2021-07-24 09:30:00 Outpatient KEVIN WHEELER [facility] [id number] [facility] Notes Date/Time Note Provider Source 2024-12-22 10:34:52 Chief Complaint Patient presents with Hematology Follow-up Hypercoagulable state ([facility]) Sara Egan MA [facility] 2024-10-23 10:42:02 Chief Complaint Patient presents with Hematology Consult History of DVT (deep vein thrombosis); History of pulmonary embolus (PE); Hypercoagulable state (multi HCC); referred by Camilo Beal DO Laura E Rivera, MA [facility] 2024-04-07 16:26:22 Chief Complaint Patient presents with Dizziness Feeling lightheaded and dizzy for about a month that is getting worse. She states she feels "drunk". She states it's like this all day unless she lies down. No abdominal pain, no vomiting but does feel nauseated at times. Positive headaches, mostly behind right eye. No visual disturbance. Tara Fountain MA II Tara Fountain MA, II [facility] 2024-02-11 13:59:11 Chief Complaint Patient presents with Consultation Was diag. With PE 12/30/23 - [facility]. Sandhya Burr LVN Sandhya Burr LVN [facility] 2024-01-17 14:09:22 Chief Complaint Patient presents with Hip Pain Right hip pain for the last 3 weeks with no known injury, fall or trauma. Austin Paredes CMA II Austin Paredes CMA, II [facility]
[2025-01-26] MEDS ORDERED: TETRACAINE HCL 0.5% 4ML OPTH ONE (08:40)
[2025-01-26] MEDS ORDERED: FLUORESCEIN SODIUM 1 MG/WRAP ONE (08:40)
--- NOTE | 2025-01-26 09:27 | EDPHYS ---
Physician Documentation [facility] Name: Neelam Abdullahi Age: 60 yrs Sex: Female : 1965 Arrival Date: 01/26/2025 Time: 08:33 Bed 11 Private MD: JIGNESH Physician Austin Han HPI: 01/26 08:45 This 60 yrs old Female presents to ER via Ambulatory with complaints of Eye Pain, jr11 Redness of Eye. 08:45 Chief Complaint: Right-sided eye pain with sensitivity to light. History of Present jr11 Illness: The patient presents with right-sided eye pain that began on January 24, 2025, approximately two days ago. Initially, the eye was red but not painful. The pain increased significantly by the following day. The patient reports no history of scratching the eye or exposure to potential irritants such as power tools or yard work. She is a contact lens wearer but currently has removed the contact lens from the affected eye. The pain is exacerbated by light exposure, prompting her to cover the eye. She has been flushing the eye but reports no improvement. The patient has not experienced any morning matting or discharge from the eye. This is her first occurrence of such symptoms. Review of Systems: - Positive for right-sided eye pain, redness, and photophobia. - No history of eye scratching, trauma, or foreign body sensation. - No morning matting or discharge from the eye. - ROS otherwise negative. . 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 - Infectious Disease History:: Denies. - Social history:: Smoking status: Patient denies any tobacco usage or history of. Exam: 08:45 Constitutional: This is a well developed, well nourished patient who is awake, alert, jr11 and in no acute distress. Head/Face: Normocephalic, atraumatic. Eyes: R eye with injection, mild scleral eyema ENT: Nares patent. No nasal discharge, no septal abnormalities noted. Oropharynx with no redness, swelling, or masses, exudates, or evidence of obstruction, uvula midline. Mucous membranes moist. Neck: Trachea midline, no thyromegaly or masses palpated, and no cervical lymphadenopathy. Supple, full range of motion without nuchal rigidity, or vertebral point tenderness. No Meningismus. Chest/axilla: Normal chest wall appearance and motion. Nontender with no deformity. No lesions are appreciated. Cardiovascular: Regular rate and rhythm with a normal S1 and S2. No gallops, murmurs, or rubs. Normal PMI, no JVD. No pulse deficits. Respiratory: Lungs have equal breath sounds bilaterally, clear to auscultation and percussion. No rales, rhonchi or wheezes noted. No increased work of breathing, no retractions or nasal flaring. Abdomen/GI: Soft, non-tender, with normal bowel sounds. No distension or tympany. No guarding or rebound. No evidence of tenderness throughout. Back: No spinal tenderness. No costovertebral tenderness. Full range of motion. Skin: Warm, dry with normal turgor. Normal color with no rashes, no lesions, and no evidence of cellulitis. MS/ Extremity: Pulses equal, no cyanosis. Neurovascular intact. Full, normal range of motion. Vital Signs: 08:41 BP 152 / 95; Pulse 67; Resp 16; Temp 97.8(TE); Pulse Ox 100% on R/A; Weight 88.45 kg; hb Height 5 ft. 10 in. ; Pain 9/10; 08:41 Body Mass Index 27.98 (88.45 kg, 177.8 cm) hb 08:41 Pain Scale: Adult hb MDM: 08:45 Differential diagnosis: Medical Decision Making: The differential diagnosis for the jr11 patient's symptoms includes corneal abrasion, conjunctivitis, foreign body in the eye, and acute glaucoma. While corneal abrasion and conjunctivitis are common causes of eye pain and redness, the possibility of a foreign body must be considered due to her contact lens use. Acute glaucoma is less likely but must be ruled out due to the potential for vision loss. Plan: - Administer topical anesthetic eye drops (e.g., Tetracaine) to facilitate a thorough eye examination. - Perform a fluorescein stain to check for corneal abrasion or foreign body. - Measure intraocular pressure using a tonopen to rule out acute glaucoma. - Provide patient education on eye care and follow-up. 08:48 Medical Screening Exam initiated jr11 09:24 Data reviewed: Fluerescein stain +abrasion 9 and 3 o clock sclera, IUP 19-20. [facility] 01/26 08:43 Order name: Eye Tray; Complete Time: 10:20 jr 01/26 08:43 Order name: Visual Acuity; Complete Time: 10:20 jr Administered Medications: 10:20 Drug: Fluorescein Ophthalmic Strip 1 strip Ophthalmic once Route: Ophthalmic; Site: bp right eye; 10:20 Drug: Tetracaine Ophthalmic Drops 0.5 % 1 drops Ophthalmic once Route: Ophthalmic; bp Site: right eye; Disposition Summary: 01/26/25 09:26 Discharge Ordered Notes: Please return if worsening.
Location: Home [facility] Condition: Stable [facility] Diagnosis - Other acute conjunctivitis [facility] Discharge Instructions: - Discharge Summary Sheet jr11 - Bacterial Conjunctivitis, Adult [facility] Forms: - Medication Reconciliation Form jr11 - Antibiotic Education jr11 - Prescription Opioid Use jr11 - Patient Portal Instructions jr11 - Leadership Thank You Letter jr11 Prescriptions: - Vigamox 0.5 % Ophthalmic Drops - instill 1 drop OPHTHALMIC route every 8 hours for 7 days; 5 milliliter; jr11 Refills: 0, Product Selection Permitted Signatures: Eleni Vasquez RN RN Donta Bermudez, RN RN bp Austin Han MD MD jr11
--- NOTE | 2025-01-26 09:27 | ER ---
Nurse's Notes [facility] Name: Neelam Abdullahi Age: 60 yrs Sex: Female : 1965 Arrival Date: 01/26/2025 Time: 08:33 Bed 11 Private MD: Diagnosis: Other acute conjunctivitis Presentation: 01/26 08:40 Chief complaint: Right eye pain x 2 days, wears contacts. Coronavirus screen: At this hb time, the client does not indicate any symptoms associated with coronavirus-19. Ebola Screen: No symptoms or risks identified at this time. Initial Sepsis Screen: Does the patient meet any 2 criteria? No. Patient's initial sepsis screen is negative. Does the patient have a suspected source of infection? No. Patient's initial sepsis screen is negative. Risk Assessment: Do you want to hurt yourself or someone else? Patient reports no desire to harm self or others. Onset of symptoms was January 24, 2025. 08:40 Method Of Arrival: Ambulatory hb 08:40 Acuity: SHERRI 3 hb Triage Assessment: 10:00 General: Appears in no apparent distress. uncomfortable, Behavior is calm, cooperative, bp appropriate for age. Pain: Complains of pain in right eye. EENT: Eyes are tearing on right eye. Neuro: No deficits noted. Cardiovascular: No deficits noted. Respiratory: No deficits noted. GI: No signs and/or symptoms were reported involving the gastrointestinal system. : No signs and/or symptoms were reported regarding the genitourinary system. Derm: No deficits noted. Musculoskeletal: No deficits noted. 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 - Infectious Disease History:: Denies. - Social history:: Smoking status: Patient denies any tobacco usage or history of. Screenin:00 [facility] ED Fall Risk Assessment (Adult) History of falling in the last 3 months, bp including since admission No falls in past 3 months (0 pts) Confusion or Disorientation No (0 pts) Intoxicated or Sedated No (0 pts) Impaired Gait No (0 pts) Mobility Assist Device Used No (0 pt) Altered Elimination No (0 pt) Score/Fall Risk Level 0 - 2 = Low Risk Oriented to surroundings. Abuse screen: Denies threats or abuse. Denies injuries from another. Nutritional screening: No deficits noted. Tuberculosis screening: No symptoms or risk factors identified. Assessment: 10:00 General: Appears in no apparent distress. uncomfortable, Behavior is calm, cooperative, bp appropriate for age. Pain: Complains of pain in right eye. Vital Signs: 08:41 BP 152 / 95; Pulse 67; Resp 16; Temp 97.8(TE); Pulse Ox 100% on R/A; Weight 88.45 kg; hb Height 5 ft. 10 in. ; Pain 9/10; 08:41 Body Mass Index 27.98 (88.45 kg, 177.8 cm) hb 08:41 Pain Scale: Adult hb ED Course: 08:35 Patient arrived in ED. im 08:37 Austin Han MD is Attending Physician. jr 08:41 Triage completed. hb 08:44 Arm band placed on. hb 10:00 Patient has correct armband on for positive identification. bp 10:00 No provider procedures requiring assistance completed. Patient did not have IV access bp during this emergency room visit. 10:10 Donta Bermudez, RN is Primary Nurse. bp Administered Medications: 10:20 Drug: Fluorescein Ophthalmic Strip 1 strip Ophthalmic once Route: Ophthalmic; Site: bp right eye; 10:20 Drug: Tetracaine Ophthalmic Drops 0.5 % 1 drops Ophthalmic once Route: Ophthalmic; bp Site: right eye; Medication: 10:00 VIS not applicable for this client. bp Outcome: 09:26 Discharge ordered by . alyssia 10:00 Discharged to home ambulatory, bp 10:00 Condition: stable 10:00 Discharge instructions given to patient, Instructed on discharge instructions, follow up and referral plans. medication usage, Demonstrated understanding of instructions, follow-up care, medications, Prescriptions given X 1, 10:22 Patient left the ED. bp Signatures: Eleni Vasquez, RN MAGO Donta Bermudez, RN RN Austin Han MD MD jrEllen Nolan im
[2025-01-26 10:29] VITALS: BP 152/95; TEMP 97.8; O2SAT 100
== END 2025-01-26 10:22 | disposition home or self-care (01) ==
LOC: ER 08:33
DX: H10.31 Unspecified acute conjunctivitis, right eye (principal); Z86.711 Personal history of pulmonary embolism; Z79.01 Long term (current) use of anticoagulants
CPT/HCPCS: 99283